=== PATIENT | male | born 1980 | race Caucasian/White ===

== ENCOUNTER 2016-10-27 16:20 | Emergency (ER) | payer OTHER, BC ==
[~2016-10-27] VITALS: Ht 175.3 cm; Wt 95.0 kg
[2016-10-27 16:27] VITALS: TEMP 36.7; Ht 175.3 cm; Wt 95.0 kg
[2016-10-27] MEDS ORDERED: XYLOCAINE 1%/SOD BICARB 20 ML VIAL INFIL ONE ×2 (16:39→17:00)
--- NOTE | 2016-10-27 16:55 | EMERGENCY ROOM VISIT NOTE ---
ED Visit Note First contact with patient: 16:41 CHIEF COMPLAINT: Finger laceration HISTORY OF PRESENT ILLNESS: This 36-year-old male patient presents to the emergency department after cutting the right third finger when his hand slipped off of the wrench he was using hitting a piece of steel. The bleeding has stopped. Denies weakness or numbness of the finger. The patient has full range of motion of the fingers. The patient rates the pain as minimal and 2/10. The patient denies any other injuries. The patient's tetanus shot is up to date. REVIEW OF SYSTEMS: A 6 system review of systems was completed with positives and pertinent negatives listed in the HPI. ALLERGIES: No known drug allergies MEDICATIONS: Reviewed PMH: Asthma SOCIAL HISTORY: Occasional alcohol use. Employed. Occasional chewing tobacco use. PHYSICAL EXAM: Vital Signs: Reviewed Nurse's notes, vital signs stable. GENERAL : 36-year-old male, in no acute distress, well developed, well nourished. SKIN : There is a 2 cm long laceration on the dorsal aspect of the right third finger. The edges gape apart with traction. There is no foreign material in the wound and it looks clean. There is no bleeding. No deep structures such as tendons, bones, or significant blood vessels are seen in the base of the wound. Extension and flexion of the finger is full and strong. Full range of motion of the wrist and other fingers. Capillary refill less than 2 seconds. Normal sensation to light and sharp touch. EMERGENCY DEPARTMENT COURSE: I examined the patient. An x-ray was performed RIGHT FINGER(S) MIN 2 VIEWS ROUTINE CLINICAL HISTORY: R 3rd digit pain swelling over PIP Right pain COMPARISON: None. DISCUSSION: The bones and joint spaces appear intact. There is no evidence of fracture, dislocation or bony disease. There is no evidence for soft tissue swelling. IMPRESSION: Negative study. The above report was generated using voice recognition software. It may contain grammatical, syntax or spelling errors. Electronically signed by: Peter Moreno M.D. 10/27/2016 5:37 PM Verbal consent was obtained to perform the procedure. Using sterile technique the wound was cleansed with Betadine. 5 ml of 1% buffered lidocaine and Marcaine was used to anesthetize the area. The area was sterilely draped. Once the patient was anesthetized, the wound was copiously irrigated under pressure with sterile saline. The wound was explored and there were no deep structures injured. The laceration was repaired using 6 simple interrupted 5-0 nylon sutures. The patient tolerated the procedure well. Hemostasis was achieved. The area was cleaned with sterile saline and dressed with bacitracin ointment and bandage. The patient was discharged home in good condition. DIAGNOSIS: Finger laceration DISCHARGE INSTRUCTIONS & TREATMENT: Keep wound clean. It is okay to gently wash the area with soapy water. Do not submerse it in water for long periods of time such as swimming, going in hot tubs or taking baths until the sutures come out. Do not allow any crusting or dried blood to accumulate on sutures. If this occurs, use a 1:1 solution of hydrogen peroxide/water on a Q-tip to clean the wound. Use an antibiotic ointment for 3-4 days, then let wound dry. Suture removal in 14 days. Return sooner for any signs of infection ( increasing redness, swelling, drainage). Ice and elevate for swelling and pain. Ibuprofen 600 mg and Tylenol 1000 mg every 6 hrs for pain. This chart was completed in part utilizing [employer] Voice Recognition software. Attempts were made to minimize the grammatical errors, random word insertions, pronoun errors and incomplete sentences. Any formal questions or concerns about the content, text or information contained within the body of this dictation should be directly addressed to the provider for clarification.
--- NOTE | 2016-10-27 17:38 | DIAGNOSTIC IMAGING REPORT ---
RIGHT FINGER(S) MIN 2 VIEWS ROUTINE CLINICAL HISTORY: R 3rd digit pain swelling over PIP Right pain COMPARISON: None. DISCUSSION: The bones and joint spaces appear intact. There is no evidence of fracture, dislocation or bony disease. There is no evidence for soft tissue swelling. IMPRESSION: Negative study. The above report was generated using voice recognition software. It may contain grammatical, syntax or spelling errors. Electronically signed by: Peter Moreno M.D. 10/27/2016 5:37 PM Dictated Date/Time: 10/27/2016 5:37 PM
[2016-10-27 18:07] VITALS: BP 133/87; PULSE 86; O2SAT 99
== END 2016-10-27 18:09 | disposition home or self-care (01) ==
LOC: C.EDB 16:21 → C.EDD 18:09
DX: S61.212A Laceration without foreign body of right middle finger without damage to nail, initial encounter (principal); W45.8XXA Other foreign body or object entering through skin, initial encounter; Y93.89 Activity, other specified; J45.909 Unspecified asthma, uncomplicated; Z72.0 Tobacco use

== ENCOUNTER 2023-03-07 13:27 | Inpatient (IN) ==
[2023-03-07] MEDS: methylPREDNISolone 125 MG/2 ML VIAL IV STA (14:09)
[2023-03-07] MEDS: MoRPHine SULFATE 10 MG/ML CARP/VIAL IV STA ×2 (14:09→17:06)
[2023-03-07] MEDS: KETOROLAC TROMETHAMINE 15 MG/ML VIAL IV STA (14:09)
[2023-03-07] MEDS: ONDANSETRON INJ 2 MG/ML 2 ML VIAL IV STA (14:09)
--- NOTE | 2023-03-07 14:21 | Emergency Department Note ---
ED Provider Note History of Present Illness Chief Complaint: Back Injury/Pain Stated Complaint: LOWER BACK PAIN/RIGHT LEG PAINFUL & NUMB Time Seen by Provider: 03/07/23 13:55 43-year-old male who presents to the emergency department for evaluation of severe lower back pain radiating into his right calf. The patient reports that he has had issues with his back since this past December. The patient did go see a chiropractor today, who referred him to the emergency department for further evaluation. The patient has not taken any recent ibuprofen or Tylenol for his pain. Patient also currently denies any bladder/bowel incontinence, numbness of the inner thighs/pubic region or foot drop. Patient reports that he has not sought any further workup by his PCP, and denies any prior history of chronic back pain or known injuries. The patient rates his discomfort a 10 out of 10. Allergies Allergy/AdvReac Type Severity Reaction Status Date / Time No Known Allergies Allergy Unknown Verified 10/27/16 16:48 Past Med/Surg History Medical History Asthma Surgical History No significant past surgical history Social History Smoking Status: Never smoker Feels Safe at Home: Yes Physical Exam Vital Signs Vital Signs - 24 hr 03/07/23 13:28 03/07/23 13:42 Temperature 36.6 C Temperature Source Temporal Artery Scan Pulse Rate 97 H Respiratory Rate 20 Respiratory Effort / Characteristics Non-Labored Non-Labored Respiratory Depth Normal Normal Respiratory Pattern Regular Blood Pressure 155/96 H Blood Pressure Mean 115 Pulse Oximetry 97 Oxygen Delivery Method Room Air Room Air Sepsis Recent Fever Within 48 Hours No Sepsis New/Unexplained Change in Mental Status No Sepsis Action Taken by Nursing No Action Required CONSTITUTIONAL: Healthy and well nourished. Patient appears in severe discomfort, and is laying on his left side. HEENT: No scleral icterus or conjunctival injection. RESPIRATORY: Clear to auscultation bilaterally with no wheezing, crackles, rhonchi or stridor. CARDIOVASCULAR: Regular rate and rhythm with no murmurs, rubs or gallops. GASTROINTESTINAL: Bowel sounds present in all quadrants. Abdomen is soft and nontender to palpation MUSCULOSKELETAL: Examination shows tenderness to palpation for the right lower lumbar region. No obvious paraspinous spasms. Negative logroll of the hip. Positive straight leg raise. Ankle plantar/dorsiflexion strength is 4 out of 5 and symmetric bilaterally INTEGUMENTARY: No rash or other significant dermatologic conditions noted. HEMATOLOGIC: No ecchymosis or petechiae. PSYCHIATRIC: Positive affect. NEUROLOGIC: Lower extremities are sensory intact. Course Course Patient history and physical exam were performed. Nurses notes were reviewed. IV access was established, and labs were drawn. The patient was administered IV morphine, Toradol, Zofran and Solu-Medrol. The patient was also administered a normal saline 500 cc bolus. After the patient was able to tolerate positioning on his back, x-rays of the lumbar spine were performed, showing notable degenerative disc disease from L3-S1. No fractures appreciated. Upon reevaluation, the patient reported that he did not really have any significant pain relief. He was therefore ordered additional IV Dilaudid. Unfortunately, there was an approximate 1 hour delay until the patient could be provided his IV medications. After an additional 45 minutes, the patient still denied any relief of symptoms. At this point, I did recommend discussing the case with our hospitalist for possible admission. I also placed an order for an MRI with orbit x-rays. The case was discussed with the [facility] hospitalist service at my end of shift. Pending MRI results, the hospitalist service indicated that they would discuss the case further with the patient and Chidi Fox PA-C. Administered Medications Discontinued Medications Hydromorphone HCl (Hydromorphone Inj 0.5 Mg/0.5 Ml Syr) 0.5 mg IV NOW STA Stop: 03/07/23 15:09 Last Admin: 03/07/23 16:05 Dose: 0.5 mg Documented By: EFRAIN Sodium Chloride (Nss) 500 mls @ 999 mls/hr IV .Q31M ONE Stop: 03/07/23 14:51 Last Infusion: 03/07/23 16:11 Dose: Infused Documented By: Admin: 03/07/23 14:32 Dose: 999 mls/hr Documented By: YAA Ketorolac Tromethamine (Ketorolac Tromethamine 15 Mg/Ml Vial) 15 mg IV NOW STA Stop: 03/07/23 14:00 Last Admin: 03/07/23 14:09 Dose: 15 mg Documented By: HUMBLE Methylprednisolone (Methylprednisolone 125 Mg/2 Ml Vial) 125 mg IV NOW STA Stop: 03/07/23 14:00 Last Admin: 03/07/23 14:09 Dose: 125 mg Documented By: HUMBLE Morphine Sulfate (Morphine Sulfate 10 Mg/Ml Carp/Vial) 6 mg IV NOW STA Stop: 03/07/23 14:00 Last Admin: 03/07/23 14:09 Dose: 6 mg Documented By: HUMBLE Ondansetron HCl (Ondansetron Inj 2 Mg/Ml 2 Ml Vial) 4 mg IV NOW STA Stop: 03/07/23 14:00 Last Admin: 03/07/23 14:09 Dose: 4 mg Documented By: HUMBLE Medical Decision Making Medical Records Attestation: I reviewed the patient's medical records. Home Medications was personally reviewed by me Laboratory Data Attestation: I reviewed the patient's lab results. 03/07/23 14:09 03/07/23 14:09 Lab Results 03/07/23 Range/Units 14:09 WBC 8.35 (4.8-10.8) K/ul RBC 5.31 (4.70-6.10) M/uL Hgb 16.3 (14.0-18.0) g/dl Hct 46.0 (42.0-52.0) % MCV 86.6 (80.0-100.0) fL MCH 30.7 (25.0-34.0) pg MCHC 35.4 (32.0-36.0) g/dL RDW Std Deviation 41.5 (36.4-46.3) fL RDW Coeff of Joselo 13.2 (11.5-14.5) % Plt Count 373 (130-400) K/uL MPV 9.6 (9.4-12.4) fL Immature Gran % (Auto) 0.4 % Neut % (Auto) 65.3 % Lymph % (Auto) 25.5 % [place] % (Auto) 5.4 % Eos % (Auto) 2.8 % Baso % (Auto) 0.6 % Neut # (Auto) 5.46 (1.40-6.50) K/uL Lymph # (Auto) 2.13 (1.20-3.40) K/uL [place] # (Auto) 0.45 (0.11-0.59) K/uL Eos # (Auto) 0.23 (0.00-0.50) K/uL Baso # (Auto) 0.05 (0.00-0.20) K/uL Immature Gran # (Auto) 0.03 (0.01-0.20) K/uL Sodium 139 (136-145) mmol/L Potassium 3.7 (3.5-5.1) mmol/L Chloride 107 (98-107) mmol/L Carbon Dioxide 24 (21-32) mmol/L Anion Gap 8 (3-11) BUN 15 (6-23) mg/dl Creatinine 0.85 (0.6-1.4) mg/dl Est Cr Clr Drug Dosing Not Reportable Est GFR ( Amer) 122.8 ml/min Est GFR (Non-Af Amer) 106.0 ml/min BUN/Creatinine Ratio 17.6 (10-20) Glucose 101 H (70-99(Fasting)) mg/dl Calcium 9.3 (8.6-10.3) mg/dl Total Bilirubin 0.4 (0.2-1.0) mg/dl AST 28 (13-39) U/L ALT 55 H (7-52) U/L Alkaline Phosphatase 75 (34-104) U/L Total Protein 7.7 (6.0-8.3) gm/dl Albumin 4.8 (3.4-5.0) gm/dl Globulin 2.9 (2.5-4.0) gm/dl Albumin/Globulin Ratio 1.7 (0.9-2) Imaging Data Attestation: I personally reviewed and interpreted this imaging study as follows: My Impression: My interpretation of lumbar spine x-rays shows notable degenerative disc disease of L3-S1, without evidence for fractures. Radiologist report was also reviewed with concurrence. Radiologist's Impression: Lumbar Spine X-Ray 03/07/23 13:59 XR lumbar spine min 4V routine HISTORY: 43 years-old Male R lumbar radiculitis x 2-3 mos subacute low back pain without reported trauma COMPARISON: None TECHNIQUE: 5 views of the lumbar spine FINDINGS: Chronic L5 pars defects with 7 mm anterolisthesis. Moderate intervertebral disc space narrowing and spondylitic spurring at L3-L4, L4-L5 and L5-S1. Additionally, there is moderate facet arthrosis at these levels. No acute fracture identified. No endplate erosions. Unremarkable soft tissues. IMPRESSION: 1. No acute fracture or subluxation. 2. Moderate degenerative changes of the lower lumbar spine. 3. Chronic L5 pars defects with grade 1 spondylolisthesis. ACT 112: Negative or not required by law. The above report was generated using voice recognition software. It may contain grammatical, syntax or spelling errors. Electronically signed by: Manav Barnett M.D. 03/07/2023 3:23 PM MDM Narrative See ED Course section for further details of today's visit. The patient presents for evaluation of a 2 to 3-month history of right lumbar radiculitis that has not had any prior workup. The patient denies any recent or remote history of back trauma. X-rays of the lumbar spine shows significant degenerative disc disease of L3-S1. Labs were reviewed and did not show any concerning findings. The patient was administered IV medications, including a corticosteroid and analgesics, with minimal reduction of his pain. At this point, because of intractable back pain, I did reach out to our [facility] hospitalist, ordering orbit x-rays and MRI of the lumbar spine. Pending MRI results, the hospitalist service indicated that they would discuss the case further with the patient and Chidi Fox PA-C. Impression Intractable low back pain, Right lumbar radiculitis Discharge Plan Visit Data Chief Complaint: Back Injury/Pain Stated Complaint: LOWER BACK PAIN/RIGHT LEG PAINFUL & NUMB ED Provider: Peter Burger ED Midlevel Provider: Abimael Nieto Discharge Problem: Intractable low back pain, Right lumbar radiculitis Forms Stand Alone Forms: My [facility] Referrals Referrals: PCP,NO [Primary Care Provider] -
[2023-03-07] MEDS: SODIUM CHLORIDE 0.9% 500 ML IV ONE (14:32)
[2023-03-07 14:38] LABS: Basophils # (auto) 0.05 K/uL (0.00-0.20); Basophils % (auto) 0.6 %; Eosinophils # (auto) 0.23 K/uL (0.00-0.50); Eosinophils % (auto) 2.8 %; Hemoglobin 16.3 g/dl (14.0-18.0); Immature Granulocytes # (auto) 0.03 K/uL (0.01-0.20); Immature Granulocytes % (auto) 0.4 %; Lymphocytes # (auto) 2.13 K/uL (1.20-3.40); Lymphocytes % (auto) 25.5 %; Mean Corpuscular Hemoglobin 30.7 pg (25.0-34.0); Mean Corpuscular Hgb Conc 35.4 g/dL (32.0-36.0); Mean Corpuscular Volume 86.6 fL (80.0-100.0); Mean Platelet Volume 9.6 fL (9.4-12.4); Monocytes # (auto) 0.45 K/uL (0.11-0.59); Monocytes % (auto) 5.4 %; Neutrophils # (auto) 5.46 K/uL (1.40-6.50); Neutrophils % (auto) 65.3 %; Platelet Count 373 K/uL (130-400); RDW Coefficient of Variation 13.2 % (11.5-14.5); RDW Standard Deviation 41.5 fL (36.4-46.3); Red Blood Count 5.31 M/uL (4.70-6.10); White Blood Count 8.35 K/ul (4.8-10.8)
[2023-03-07 14:54] LABS: Alanine Aminotransferase 55 U/L (7-52); Albumin Globulin Ratio 1.7 (0.9-2); Albumin Level 4.8 gm/dl (3.4-5.0); Alkaline Phosphatase 75 U/L (34-104); Anion Gap 8 (3-11); Aspartate Aminotransferase 28 U/L (13-39); BUN Creatinine Ratio 17.6 (10-20); Bilirubin,Total 0.4 mg/dl (0.2-1.0); Blood Urea Nitrogen 15 mg/dl (6-23); Calcium 9.3 mg/dl (8.6-10.3); Carbon Dioxide 24 mmol/L (21-32); Chloride 107 mmol/L (98-107); Est GFR (African American) 122.8 ml/min; Globulin 2.9 gm/dl (2.5-4.0); Glucose 101 mg/dl (70-99(Fasting)); Potassium 3.7 mmol/L (3.5-5.1); Sodium 139 mmol/L (136-145); Total Protein 7.7 gm/dl (6.0-8.3)
--- NOTE | 2023-03-07 15:24 | XRay Report ---
XR lumbar spine min 4V routine HISTORY: 43 years-old Male R lumbar radiculitis x 2-3 mos subacute low back pain without reported tr auma COMPARISON: None TECHNIQUE: 5 views of the lumbar spine FINDINGS: Chronic L5 pars defects with 7 mm anterolisthesis. Moderate intervertebral disc space narrowing and s pondylitic spurring at L3-L4, L4-L5 and L5-S1. Additionally, there is moderate facet arthrosis at the se levels. No acute fracture identified. No endplate erosions. Unremarkable soft tissues. IMPRESSION: 1. No acute fracture or subluxation. 2. Moderate degenerative changes of the lower lumbar spine. 3. Chronic L5 pars defects with grade 1 spondylolisthesis. ACT 112: Negative or not required by law. The above report was generated using voice recognition software. It may contain grammatical, syntax o r spelling errors. Electronically signed by: Manav Barnett M.D. 03/07/2023 3:23 PM
[2023-03-07] MEDS: HYDROmorphone INJ 0.5 MG/0.5 ML SYR IV STA ×2 (16:05→19:23)
--- NOTE | 2023-03-07 17:57 | XRay Report ---
XR orbits for MRI CLINICAL HISTORY: Screening for foreign body for MRI TECHNIQUE: AP and lateral views of the orbits were submitted for interpretation. Comparison: None available at the time of this dictation. FINDINGS/IMPRESSION: There are no radiopaque metallic foreign bodies. The osseous structures are unremarkable. Patient is cleared for MRI. ACT 112: Negative or not required by law. Electronically signed by: Chris Foster M.D. 03/07/2023 5:56 PM
[2023-03-07] MEDS ORDERED: NALOXONE HCL 0.4 MG/1 ML VIAL/CARP IV PRN (18:13)
--- NOTE | 2023-03-07 18:23 | History & Physical Report ---
Date of Service March 07, 2023 Assessment & Plan (1) Right lumbar radiculitis: Plan: -Admit to med/surge on pulse oximetry -Currently hemodynamically stable and stable on RA -Presented to the ED with acute onset of lumbar back pain with radiation down the RLE -Associated with RLE paresthesias -No red flag symptoms or recent falls -Xray of the lumbar spine shows "Chronic L5 pars defects with grade 1 spondylolisthesis" -Pain was uncontrolled despite multiple doses of morphine, toradol and a dose of dilaudid in the ED -Also received a dose of 125 mg IV Solu-medrol in the ED -MRI of the lumbar spine wo con was ordered in the ED but has yet to be obtained -Will continue pain control with scheduled tylenol, heat, lidocaine patch and prn dilaudid for severe pain -Will FU on MRI of the lumbar spine -Will place ortho spine consult -Will obtain ECG and CXR in case he is taken to the OR during this admission -Monitor on pulse oximetry, prn narcan for oversedation/respiratory depression -Fall precautions, PT/OT consults placed -SQ lovenox for DVT PPX -HH diet -AM CBC, BMP, LFT's (2) Elevated ALT measurement: Plan: -ALT mildly elevated at 55 -Patient does not report significant alcohol intake -Denies recent Tylenol use -Benign abdominal exam -Will obtain am LFT's, if not improving or progressing then continue workup (3) Intractable low back pain: Plan: -See right lumbar radiculitis (4) Asthma: Plan: -Stable on RA -Lungs are clear -Incentive spirometry -PRN albuterol (5) HTN (hypertension): Plan: -Stable -Continue amlodipine Plan The patient was discussed with Dr. Saenz at the time of the admission History of Present Illness Chief Complaint: Radicular back pain Primary Care Provider: NO PCP Arsh is a 43 year old male with a PMH significant for HTN, obesity, asthma, and anxiety who presented to the [facility] ED on 03/07/23 for uncontrolled low back pain with radiation down the right leg. He was noted to be tachycardic with HR in the low 100's but otherwise stable. Labs were significant for a ALT of 55 but otherwise unremarkable. Xray of the lumbar spine was read as "1. No acute fracture or subluxation. 2. Moderate degenerative changes of the lower lumbar spine. 3. Chronic L5 pars defects with grade 1 spondylolisthesis. ". The patient was given 2 doses of 6 mg IV morphine, one dose of 0.5 mg IV Dilaudid, 125 mg, 15 mg IV toradol without improvement in his symptoms. We were asked to admit for pain control, MRI of the lumbar spine, and Ortho Spine consult/evaluation. At the time of the exam the patient was lying in bed and appears uncomfortable but in no acute distress. 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 Over the past 2 months he has been chopping lots of wood for the winter which somewhat exacerbated his pain last month, but this had improved. 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 He states that since the weekend he has had significantly increased low back pain with radiation down the right lateral leg, over the anterior bejarano, and on the dorsal aspect of the right foot. He has been exper iencing paresthesias over the same distribution of his pain but denies loss of bowel/bladder function, saddle anesthesia, and recent falls. He does state that he has felt less stable on his feet over the past 48 hours. He was using ibuprofen for his pain over the past hours taking 800 mg BID without relief. He denies current tobacco use and drinks beer socially. He is a full code and would want his fiance (Faye Pulliam [phone]) to make medical decisions for him if he cannot make them himself. Please refer to Dr. Saenz's attestation for any changes to the treatment plans Allergies Allergy/AdvReac Type Severity Reaction Status Date / Time No Known Allergies Allergy Unknown Verified 10/27/16 16:48 Home Medications Medication Instructions Recorded Confirmed Type Probiotic 1 gummy PO DAILY 03/07/23 03/07/23 History albuterol sulfate 90 mcg/actuation 2 puff inhalation UD PRN Other 03/07/23 03/07/23 History aerosol inhaler amlodipine 10 mg tablet 10 mg PO QAM 03/07/23 03/07/23 History bupropion HCl 150 mg 24 hr tablet, 150 mg PO QAM 03/07/23 03/07/23 History extended release Past Med/Surg History Medical History Asthma Surgical History No significant past surgical history Social History Smoking Status: Never smoker Feels Safe at Home: Yes Physical Exam Physical Exam: Physical Exam: General: In mild distress due to pain, stated age, well-nourished, good hygiene HEENT: Normocephalic, atraumatic, no scleral icterus, pupils around round, symmetrical, and reactive to light, moist mucus membranes, trachea midline, no thyromegaly Chest/Pulm: No respiratory distress, symmetrical chest expansion, clear breath sounds throughout Cardiac: RRR, no murmurs noted Abdomen: Negative for ascites and bruising, normoactive bowel sounds, soft, non-tender to palpation throughout Musculoskeletal: Patient is tender to palpation over the lower lumbar spine and right lumbar paravertebral muscles without step off or crepitus, decreased strength with right hip flexion due to pain, otherwise symmetrical strength in the BL LE's Extremities: Radial, dorsalis pedis, and posterior tibial pulses are intact and symmetrical, no edema noted in the LE's Skin: Warm, dry, no rashes , lesions, or scars noted Neuro: Alert and oriented to person, place, month, year, and president, no focal defects, decreased sensation in the RLE compared to left with light touch, 2+ patellar and Achilles reflex BL Psych: mild distress due to pain, but polite and cooperative during the exam Results & Data Results & Data Vital Signs (Past 12 Hours) Vital Signs Temp Pulse Pulse Resp BP BP Pulse Ox 03/07/23 17:33 104 H 20 134/93 94 03/07/23 17:33 103 H 03/07/23 13:42 36.6 C 97 H 20 155/96 H 97 03/07/23 13:28 O2 Del Method 03/07/23 17:33 Room Air 03/07/23 17:33 03/07/23 13:42 Room Air 03/07/23 13:28 Room Air Laboratory Results Abnormal lab results 03/07/23 Range/Units 14:09 Glucose 101 H (70-99(Fasting)) mg/dl ALT 55 H (7-52) U/L Diagnostic Findings Lumbar Spine X-Ray 03/07/23 13:59 XR lumbar spine min 4V routine HISTORY: 43 years-old Male R lumbar radiculitis x 2-3 mos subacute low back pain without reported trauma COMPARISON: None TECHNIQUE: 5 views of the lumbar spine FINDINGS: Chronic L5 pars defects with 7 mm anterolisthesis. Moderate intervertebral disc space narrowing and spondylitic spurring at L3-L4, L4-L5 and L5-S1. Additionally, there is moderate facet arthrosis at these levels. No acute fracture identified. No endplate erosions. Unremarkable soft tissues. IMPRESSION: 1. No acute fracture or subluxation. 2. Moderate degenerative changes of the lower lumbar spine. 3. Chronic L5 pars defects with grade 1 spondylolisthesis. ACT 112: Negative or not required by law. The above report was generated using voice recognition software. It may contain grammatical, syntax or spelling errors. Electronically signed by: Manav Barnett M.D. 03/07/2023 3:23 PM Orbit X-Ray 03/07/23 16:50 XR orbits for MRI CLINICAL HISTORY: Screening for foreign body for MRI TECHNIQUE: AP and lateral views of the orbits were submitted for interpretation. Comparison: None available at the time of this dictation. FINDINGS/IMPRESSION: There are no radiopaque metallic foreign bodies. The osseous structures are unremarkable. Patient is cleared for MRI. ACT 112: Negative or not required by law. Electronically signed by: Chris Foster M.D. 03/07/2023 5:56 PM ECG Additional Comments: Will obtain at the time of the admission Code Status & VTE Plan Code Status Full code VTE Prophylaxis Plan VTE Prophylaxis will be ordered: Yes Supervising Physician Co-Signing Physician Notes Patient seen and examined, chart reviewed, case discussed with Delmar Storm PA-C and I agree with the assessment and plan as above except as otherwise noted Labs and images reviewed 43-year-old male who presents for evaluation of right radicular pain. Chest x- ray is without acute findings. Patient has no bowel or bladder dysfunction and no saddle anesthesia. He has had shooting pain from his lumbar spine down his right leg into the heel which limits his ability to stand from the toilet PE he also has just noticed some difficulty/weakness in the right foot standing on his heel/with dorsiflexion compared to the left, and may be a little bit of weakness in his thigh when attempting to stand. Given radicular symptoms and strength deficit agree with admission, MRI, and spine consultation. Patient has been given methylprednisolone 125 mg IV load. Continue multimodal pain control. Agree with assessment and management as above PG Care Time/CCT Total # of Minutes Spent Total Time Spent with Patient: Total time spent is greater than 50% in coordination of care (as documented) at patient's floor/unit and/or counseling patient: [place] [address] INT INP/OBS CARE 2/55MIN Patient Type New Medical Decision Making Moderate Complexity Diagnoses Right lumbar radiculitis M54.16 Elevated ALT measurement R74.01 Intractable low back pain M54.59 Asthma J45.909 HTN (hypertension) I10
[2023-03-07] MEDS: LIDOCAINE 5% 1 PATCH TD STA (19:22)
[2023-03-07] MEDS: ACETAMINOPHEN 325 MG TAB PO STA (19:22)
--- NOTE | 2023-03-07 20:10 | Magnetic Resonance Report ---
Exam(s): MRI L SPINE Without Contrast EXAM: MR Lumbar Spine Without Intravenous Contrast CLINICAL HISTORY: Reason for exam: Intractable LBP w/ R lumbar radic. TECHNIQUE: Magnetic resonance images of the lumbar spine without intravenous contrast in multiple planes. COMPARISON: Lumbar spine radiographs 03/07/2023 FINDINGS: Vertebrae: Chronic bilateral pars defects of L5 with grade 1 spondylolisthesis of L5 on S1. Minimal grade 1 retrolisthesis of L3 on L4 and L4 on L5. Modic degenerative endplate changes are seen in the lumbar spine. 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 Spinal cord: Unremarkable. Normal signal. Soft tissues: Unremarkable. DISCS/SPINAL CANAL/NEURAL FORAMINA: L1-L2: Mild disc bulge with small endplate osteophytes and facet arthrosis. No significant spinal canal stenosis or foraminal narrowing. L2-L3: Mild disc bulge and facet arthrosis. No significant spinal canal stenosis. Mild bilateral foraminal narrowing. L3-L4: Disc bulge with annular fissure and superimposed right subarticular disc protrusion. Bilateral facet arthrosis. Right subarticular recess stenosis with displacement of the descending right L4 nerve roots. Moderate bilateral foraminal narrowing. L4-L5: Disc bulge with annular fissure, endplate osteophytes, and bilateral facet arthrosis. No significant spinal canal stenosis. Severe right and moderate to severe left foraminal narrowing. L5-S1: Spondylolisthesis of L5 on S1 with uncovering of disc material, annular fissure, endplate osteophytes, and bilateral facet arthrosis. No significant spinal canal stenosis. Severe bilateral foraminal narrowing. IMPRESSION: 1. Chronic bilateral pars defects of L5 with grade 1 spondylolisthesis of L5 on S1 and associated severe degenerative change resulting in severe bilateral foraminal narrowing. Recommend correlation for symptoms. 2. Right subarticular disc protrusion at L3-L4 resulting in right subarticular recess stenosis with mass effect on the descending right L4 nerve roots. Recommend correlation for symptoms. 3. Degenerative change at L4-L5 resulting in severe right and moderate to severe left foraminal narrowing. Electronically signed by: Mohinder Bravo MD 03/07/23 20:09 PM
[2023-03-07] MEDS ORDERED: ALBUTEROL HFA 8 GM INHALER INH PRN (20:52)
[2023-03-07] MEDS: ENOXAPARIN INJ 40 MG/0.4 ML SYR SQ SCH (21:38)
--- OUTSIDE RECORDS SUMMARY | 2023-03-07 22:08 | External Medical Summary | Summary of Care ---
Author Name Unknown Organization [facility] Address [address] [place] [address] Phone [phone] Care Team Providers Care Supervisor Seaming Name Role Phone Amy Carey MD Primary Care Provider [phone] Reason for Visit * Reason Onset Date Comments Test Results 09/14/2022 Encounter Details Date Type Department Care Team Description 09/14/2022 Telephone General Internal Medicine [facility] [address] [facility] [place] [address] Amy Carey MD [address] [place] [address] Test Results Allergies Active Allergy Reactions Severity Noted Date Comments Cat Dander Anaphylaxis High 07/29/2022 Dust Low 07/29/2022 Sinus congestion Pollen Low 07/29/2022 Sinus congestion documented as of this encounter (statuses as of 09/15/2022) Medications Medication Sig Dispensed Refills Start Date End Date Status Fluticasone Propionate 50 MCG/ACT Nasal Suspension (Flonase)Indications :Seasonal allergic rhinitis, unspecified trigger,Bilateral chronic serous otitis media Administer into each nostril [address] 12/09/2021. 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 18 g 0 12/09/2021 Active amLODIPine Besylate 5 MG Oral Tablet (Norvasc)Indications :HTN, goal below 130/80 TAKE 1 TABLET BY MOUTH IN THE MORNING - BLOOD PRESSURE CHECK IN 2 TO 3 WEEKS. 90 Tablet 3 04/21/2022 Active buPROPion HCl ER (XL) 150 MG Oral Tablet Extended Release 24 Hour (Wellbutrin XL)Indications:Curre nt moderate episode of major depressive disorder without prior episode (HCC),Excessive anger Take 1 Tablet by mouth in the morning. Since 06/04/21. 90 Tablet 1 06/15/2022 Active oxyCODONE-Acetaminop hen 5-325 MG Oral Tablet (Percocet) Take 1 Tablet by mouth every 6 hours as needed for moderate Pain 10 Tablet 0 08/27/2022 Active Ibuprofen 800 MG Oral Tablet (Motrin) Take 1 Tablet by mouth in the morning and 1 Tablet at noon and 1 Tablet before bedtime. Take with Meals. 45 Tablet 0 08/27/2022 Active Hospital, Clinic, or Other Facility Administered Medication Ordered Dose Route Frequency Start Date End Date Status Albuterol Sulfate (Proventil) (2.5 MG/3ML) 0.083% inhalation solution 2.5 mgIndications:Cold-sheila sophie asthma without complication, unspecified asthma severity, unspecified whether persistent,History of tobacco use 2.5 mg NEBULIZER PRN 05/24/2022 05/24/2023 Active Albuterol Sulfate (Proventil) (5 MG/ML) 0.5% *conc* inhalation solution 2.5 mgIndications:Cold-sheila sophie asthma without complication, unspecified asthma severity, unspecified whether persistent,History of tobacco use 2.5 mg NEBULIZER PRN 05/24/2022 05/24/2023 Active documented as of this encounter (statuses as of 09/15/2022) Active Problems Problem Noted Date 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 Current moderate episode of major depressive disorder without prior episode 06/09/2021 Excessive anger 06/09/2021 Witnessed episode of apnea 06/09/2021 Restless legs syndrome 06/09/2021 Class 1 obesity due to excess calories w ith serious comorbidity in adult 06/09/2021 Numerous skin moles 06/09/2021 History of tobacco use 06/09/2021 Marijuana smoker, episodic 06/09/2021 History of MRSA infection 12/17/2020 Overview: ACL repair left 1997> growth left knee 2007 DrEllis excised x 2- h/o MRSA inf documented as of this encounter (statuses as of 09/15/2022) Immunizations Name Administration Dates Next Due COVID-19 mRNA, LNP-s, No Pre serve, 2-Dose Series (Moderna) 07/15/2020,06/24/2020 Pneumococcal Conjugate Vaccine, 20-valent (Prevn ar20) 03/16/2022 Seasonal Influenza, Quadriva lent, No Preserve, 6 Mons & Above, IM 12/09/2021,12/17/2020 Seasonal Influenza, Split, IIV3, With Preserve, Inj 07/15/2011 TDAP (age 10 and older)(Boostrix) 03/10/2021 documented as of this encounter Social History Tobacco Use Types Packs/Day Years Used Date Smoking Tobacco: Former Cigarettes 0.3 5 Q uit: 12/15/2021 Smokeless Tobacco: Former Chew Quit: 2018 Comments: Alcohol Use Standard Drinks/Week Comments Yes 5 (1 standard drink = 0.6 oz pur e alcohol) 6p/wk Alcohol Habits Answer Date Recorded How often do you have a drink containing alcohol ? Monthly or less 12/17/2020 How many drinks containing a lcohol do you have on a typical day when you are drinking? 1 or 2 12/17/2020 How often do you have six or more drinks on one occasion? Never 12/17/2020 Food Insecurity Answer Date Recorded Within the past 12 months, y ou worried that your food would run out before you got money to buy more. Never true 05/24/2022 Within the past 12 months, t he food you bought just didn't last and you didn't have money to get more. Never true 05/24/2022 Sex Assigned at Date Recorded Not on file Job Start Date Occupation Industry Not on file Not on file Not on file documented as of this encounter Miscellaneous Notes * Telephone Encounter - LOU Kaplan - 09/15/2022 10:49 AM EDT Please assist patient in scheduling. * Telephone Encounter - Amy Carey MD - 09/14/2022 5:35 PM EDT Please route to central scheduler * Telephone Encounter - Chidi Morgan LPN - 09/14/2022 3:25 PM EDT Provider to address: Amy Carey MD Reason for Call: Test Results Contact: Telephone Call Contact Type: Test Results Outcome: patient informed and voiced understanding. Total Time including non face to face (minutes): 5 * Telephone Encounter - Chidi Morgan LPN - 09/14/2022 3:20 PM EDT ----- Message from Amy Carey MD sent at 09/10/2022 9:21 PM EDT ----- Right knee synovitis excision 08/27/22 >pathology shows chronic synovitis, negative for crystals,Lyme PCR negative -Differential of Lyme arthritis versus rheumatoid or other immune mediated inflammatory arthritis. --(symptoms had started after ski injury in March; he was treated with doxycycline 4 weeks 06/25/22 > lyme IgG and IgM were +). ---labs to rule out inflammatory arthritis ordered to be done in 4 weeks and refer to Rheumatology for eval. documented in this encounter Plan of Treatment Upcoming Encounters Date Type Specialty Care Team Description 09/21/2022 Office Visit Rheumatology Danny Adler MD [address] [facility], [place] [id number] 09/29/2022 Office Visit Orthopedics Shawn Kat MD [address] [place] [phone] 11/16/2022 Office Visit Internal Medicine Amy Carey MD [address] [place] [address] Health Maintenance Due Date Last Done Comments Hepatitis B (1 of 3 - 3-dose series) 1979 HIV Screening 1994 Hepatitis C Screening 1997 COVID-19 Vaccine (3 - Modern a series) 09/09/2020 07/15/2020, 06/24/2020 Influenza Vaccine (FLU shot) (#1) 2022 12/09/2021, 12/17/2020, 07/15/2011 Depression Screening, Annual for Pts 12 and Over 05/25/2023 05/24/2022 Diabetes Screening 03/24/2025 03/24/2022 Lipid Panel 03/24/2027 03/24/2022 DTaP,Tdap,and Td Vaccines (2 - Td or Tdap) 03/10/2031 03/10/2021 Pneumococcal Vaccine: Pediatrics (0 to 5 Years) and At-Risk Patients (6 to 64 Years) Completed 03/16/2022 GARDASIL-HPV IMMUNIZATION SERIES Aged Out No longer eligible b ased on patient's age to complete this topic MENINGOCOCCAL (MENACTRA/MENVEO) Aged Out No longer eligible b ased on patient's age to complete this topic documented as of this encounter Medical Devices Not on filedocumented as of this encounter Advance Directives Latest Code Status on File Code Status Date Activated Date Inactivated Comments Full Code 08/27/2022 12:54 PM 08/27/2022 6:12 PM This order reflects the patients wishes and were consensually agreed upon. Question Answer Comments Discussion of Advance Directives occurred with: Not Discussed due to patient's condition Code Status History Code Status Date Activated Date Inactivated Comments Full Code 08/27/2022 11:09 AM 08/27/2022 12:54 PM Thi s order reflects the patients wishes and were consensually agreed upon. Question Answer Comments Discussion of Advance Directives occurred with: Not Discussed due to patient's condition Care Teams Supervisor Seaming Relationship Specialty Start Date End Date Amy Carey MD [address] [place] [address] PCP - General Internal Medicine 03/10/21 documented as of this encounter
--- OUTSIDE RECORDS SUMMARY | 2023-03-07 22:08 | External Medical Summary | Summary of Care ---
Author Name Unknown Organization [facility] Address [address] [place] [address] Phone [phone] Care Team Providers Care Manager Of Tax Name Role Phone Amy Carey MD Primary Care Provider Encounter Details Date Type Department Care Team Description 10/07/2022 Telephone Pulmonary Medicine, [facility] [address] [place] [address] [place], [address] [place] [id number] Allergies Active Allergy Reactions Severity Noted Date Comments Cat Dander Anaphylaxis High 07/29/2022 Dust Low 07/29/2022 Sinus congestion Pollen Low 07/29/2022 Sinus congestion documented as of this encounter (statuses as of 10/07/2022) Medications Medication Sig Dispensed Refills Start Date [...] as of this encounter (statuses as of 10/07/2022) Active Problems Problem Noted Date Cold-induced asthma [...] as of this encounter (statuses as of 10/07/2022) Immunizations Name Administration Dates Next Due COVID-19 mRNA, LNP-s, No Pre serve, 2-Dose Series (Moderna) 07/15/2020,06/24/2020 Pneumococcal Conjugate Vaccine, 20-valent (Prevn ar20) 03/16/2022 Seasonal Influenza, PF, 6 mo ns & Above, IM , (Flulaval) 12/09/2021,12/17/2020 Seasonal Influenza, Split, IIV3, With Preserve, [...] encounter Miscellaneous Notes * Telephone Encounter - SELWYN Rowley - 10/07/2022 10:11 AM EDT New CPAP order entered into . documented in this encounter Plan of Treatment Upcoming Encounters Date Type Specialty Care Team Description 11/16/2022 Office Visit Internal Medicine Amy Carey MD [address] [facility] [place] [address] Health Maintenance Due Date Last Done Comments [...] Discussed due to patient's condition Care Teams Manager Of Tax Relationship Specialty Start Date End Date Amy Carey MD [address] [place] [address] PCP - General Internal Medicine 03/10/21 documented as of this encounter
--- OUTSIDE RECORDS SUMMARY | 2023-03-07 22:08 | External Medical Summary | Summary of Care ---
Author Name Unknown Organization [facility] Address [address] [place] [address] Phone [phone] Care Team Providers Care Bail Attacher Name Role Phone Amy Carey MD Primary Care Provider [phone] Encounter Details Date Type Department Care Team Description 10/07/2022 Telephone Pulmonary Medicine, [facility] [address] [place] [address] Blanca Jade, [address] [facility] [place] [address] Allergies Active Allergy Reactions Severity Noted Date Comments Cat Dander Anaphylaxis High 07/29/2022 Dust Low 07/29/2022 Sinus congestion Pollen Low 07/29/2022 Sinus congestion documented as of this encounter (statuses as of 11/24/2022) Medications Medication Sig Dispensed Refills Start Date End Date Status Fluticasone Propionate 50 MCG/ACT Nasal Suspension (Flonase)Indicat ions:Seasonal allergic rhinitis, unspecified trigger,Bilatera l chronic serous otitis media Administer into each nostril [address] 12/09/2021. 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 18 g 0 2 Active buPROPion HCl ER (XL) 150 MG Oral Tablet Extended Release 24 Hour (Wellbutrin XL)Indications:C urrent moderate episode of major depressive disorder without prior episode (HCC),Excessive anger Take 1 Tablet by mouth in the morning. Since 06/04/21. 90 Tablet 1 3 Active Ibuprofen 800 MG Oral Tablet (Motrin) Take 1 Tablet by mouth in the morning and 1 Tablet at noon and 1 Tablet before bedtime. Take with Meals. 45 Tablet 0 3 Active Additional Information Patient taking differently:800 mg [id number] PRN, Pain, Breakthrough, Take with Meals, Reported on 11/16/2022 amLODIPine Besylate 5 MG Oral Tablet (Norvasc)Indicat ions:HTN, goal below 130/80 TAKE 1 TABLET BY MOUTH IN THE MORNING - BLOOD PRESSURE CHECK IN 2 TO 3 WEEKS. 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 Agrees to the pressure change * Telephone Encounter - Blanca Jade DO - 11/23/2022 7:46 AM EDT Please let pt know that I reviewed his PAP DL and it looks like he may benefit from a pressure adjustment. Right now his pressure is [id number], and I suggest adjusting it to [id number]. If he is in agreement please let me know, I will make the change (DME: [facility]). Denise, can you set up a 6 months appt for him? PAP Compliance: Report date: 10/23/22 to 11/21/22 % total days used: 93% % days used > 4 hours: 70% Average hours a day: 5 hrs 23 mins Large leak: 12.9 AHI: 1.5/hr 95% pressure: 10.7 cmH20 * Telephone Encounter - Rosy Chambers LPN - 11/22/2022 2:39 PM EDT Current DL has been given to the provider for review * Telephone Encounter - Blanca Jade DO - 11/19/2022 12:29 PM EDT May I have an updated PAP DL? Planning to order Nox on RA w/ PAP if DL shows pressure are ideal currently * Telephone Encounter - Amy Carey MD - 11/16/2022 4:37 PM EDT Pt on CPAP x1mth, priti well , pll order night oximetery and f/u after as per last OV notes. * Telephone Encounter - SELWYN Rowley - 10/07/2022 10:11 AM EDT New CPAP order entered into [facility]. documented in this encounter Plan of Treatment Health Maintenance Due Date Last Done Comments Hepatitis B (1 of 3 - 3-dose series) 1979 HIV Screening 1994 Hepatitis C Screening 1997 COVID-19 Vaccine ( season) 2022 07/15/2020, 06/24/2020 Depression Screening 05/25/2023 05/24/2022 Diabetes Screening 03/24/2025 03/24/2022 Lipid Panel 03/24/2027 03/24/2022 DTaP,Tdap,and Td Vaccines (2 - Td or Tdap) 03/10/2031 03/10/2021 Pneumococcal Vaccine: Pediatrics (0 to 5 Years) and At-Risk Patients (6 to 64 Years) Completed 03/16/2022 Influenza Vaccine (FLU shot) Completed 04/2022, 12/09/2021, 12/17/2020, Additional history exists GARDASIL-HPV IMMUNIZATION SERIES Aged Out No longer eligible based on patient's age to complete this topic MENINGOCOCCAL (MENACTRA/MENVEO) Aged Out No longer eligible based on patient's age to complete this topic [...] Discussed due to patient's condition Care Teams Bail Attacher Relationship Specialty Start Date End Date Amy Carey MD [address] [facility] [place], [place] [id number] PCP - General Internal Medicine 03/10/21 documented as of this encounter
--- OUTSIDE RECORDS SUMMARY | 2023-03-07 22:08 | External Medical Summary | Summary of Care ---
Author Name Unknown Organization [facility] Address [address] [place] [address] Phone [phone] Care Team Providers Care Icer Machine Name Role Phone Amy Carey MD Primary Care Provider [phone] Encounter Details Date Type Department Care Team Description 10/07/2022 Telephone Pulmonary Medicine, [facility] [address] [place] [address] Blanca Jade, [address] [facility] [place] [address] Allergies Active Allergy Reactions Severity Noted Date Comments Cat Dander Anaphylaxis High 07/29/2022 Dust Low 07/29/2022 Sinus congestion Pollen Low 07/29/2022 Sinus congestion documented as of this encounter (statuses as of 11/23/2022) Medications Medication Sig Dispensed Refills Start Date [...] Active Additional Information Patient taking differently:800 mg [id number] PRN, Pain, Breakthrough, Take with Meals, Reported [...] as of this encounter (statuses as of 11/23/2022) Active Problems Problem Noted Date Severe sleep [...] as of this encounter (statuses as of 11/23/2022) Immunizations Name Administration Dates Next Due COVID-19 mRNA, LNP-s, No Pre serve, 2-Dose Series (Moderna) 07/15/2020,06/24/2020 Pneumococcal Conjugate Vacci ne, 20-valent ([id number]) 03/16/2022 SEASONAL INFLUENZA, PF, 6 M & [...] encounter Miscellaneous Notes * Telephone Encounter - Blanca Jade DO - 11/23/2022 7:46 AM EDT Please let pt know that I reviewed his PAP DL and it looks like he may benefit from a pressure adjustment. Right now his pressure is [id number], and I suggest adjusting it to [id number]. If he is in agreement please let me know, I will make the change (DME: [facility]). Denise, can you set up a 6 [...] last OV notes. * Telephone Encounter - Daiana Courtney, SELWYN - 10/07/2022 10:11 AM EDT New CPAP order entered into [facility]. documented in this encounter Plan of Treatment Health Maintenance Due Date Last Done Comments Hepatitis B (1 of 3 - 3-dose series) 1979 HIV Screening 1994 Hepatitis C Screening 1997 COVID-19 Vaccine (3 season) 2022 07/15/2020, 06/24/2020 Depression Screening 05/25/2023 [...] Discussed due to patient's condition Care Teams Icer Machine Relationship Specialty Start Date End Date Amy Carey MD [address] [place] [address] PCP - General Internal Medicine 03/10/21 documented as of this encounter
--- OUTSIDE RECORDS SUMMARY | 2023-03-07 22:08 | External Medical Summary | Summary of Care ---
Author Name Unknown Organization [facility] Address [address] [place] [address] Phone [phone] Care Team Providers Care Funeral Arranger Name Role Phone Amy Carey MD Primary Care Provider [phone] Encounter Details Date Type Department Care Team Description 10/07/2022 Telephone Pulmonary Medicine, [facility] [address] [place] [address] Blanca Jade, [address] [place] [address] Allergies Active Allergy Reactions Severity Noted Date Comments Cat Dander Anaphylaxis High 07/29/2022 Dust Low 07/29/2022 Sinus congestion Pollen Low 07/29/2022 Sinus congestion documented as of this encounter (statuses as of 11/22/2022) Medications Medication Sig Dispensed Refills Start Date [...] Active Additional Information Patient taking differently:800 mg [id number] PRN, Pain, Breakthrough, Take with Meals, Reported [...] as of this encounter (statuses as of 11/22/2022) Active Problems Problem Noted Date Severe sleep [...] as of this encounter (statuses as of 11/22/2022) Immunizations Name Administration Dates Next Due COVID-19 mRNA, LNP-s, No Pre serve, 2-Dose Series (Moderna) 07/15/2020,06/24/2020 Pneumococcal Conjugate Vacci ne, 20-valent ([id number]) 03/16/2022 SEASONAL INFLUENZA, PF, 6 M & [...] Discussed due to patient's condition Care Teams Funeral Arranger Relationship Specialty Start Date End Date Amy Carey MD [address] [facility] [place] [address] PCP - General Internal Medicine 03/10/21 documented as of this encounter
--- OUTSIDE RECORDS SUMMARY | 2023-03-07 22:08 | External Medical Summary | Summary of Care ---
Author Name Unknown Organization [facility] Address [address] [place] [address] Phone [phone] Care Team Providers Care Electronics Engineering Professor Name Role Phone Amy Carey MD Primary Care Provider [phone] Reason for Visit * Reason Onset Date Comments Follow Up The pt stated he is here for a follow up appointmentThe pt stated he has chest pain that has been present for approx 1 month since he had an URI. Pt describes the pain as pressure. Medication Administration 11/16/2022 Flu an d/or Pneumo Inj Encounter Details Date Type Department Care Team Description 11/16/2022 Office Visit General Internal Medicine [facility] [address] [place] [address] Amy Carey MD [address] [place] [address] HTN, goal below 130/80*; Need for prophylactic vaccination and inoculation against influenza; Excessive anger; Severe sleep apnea; Screening for diabetes mellitus; History of 2019 novel coronavirus disease (COVID-19); Chest discomfort; History of synovitis; Current moderate episode of major depressive disorder without prior episode (HCC) Allergies Active Allergy Reactions Severity Noted Date Comments Cat Dander Anaphylaxis High 07/29/2022 Dust Low 07/29/2022 Sinus congestion Pollen Low 07/29/2022 Sinus congestion documented as of this encounter (statuses as of 11/16/2022) Medications Medication Sig Dispensed Refills Start Date [...] Active Additional Information Patient taking differently:800 mg [id number] PRN, Pain, Breakthrough, Take with Meals, Reported on 11/16/2022 amLODIPine Besylate 10 MG Oral Tablet (Norvasc)Indicat ions:HTN, goal below 130/80 Take 1 Tablet by mouth in the morning. Inc 11/16/2022. 90 Tablet 1 3 Active amLODIPine Besylate 5 MG Oral Tablet (Norvasc)Indicat ions:HTN, goal below 130/80 TAKE 1 TABLET BY MOUTH IN THE MORNING - BLOOD PRESSURE CHECK IN 2 TO 3 WEEKS. 90 Tablet 3 3 11/17/19 23 Discontinued(Med ication/Dose Changed) Doxycycline Hyclate 100 MG Oral CapsuleIndicatio ns:Effusion, right knee,Rupture of posterior cruciate ligament of right knee, initial encounter,Lyme disease Take 1 Capsule by mouth in the morning and 1 Capsule before bedtime. 60 Capsule 0 3 11/17/19 23 Discontinued(End of Procedure) Amoxicillin 500 MG Oral Capsule (Amoxil)Indicati ons:Lyme disease Take 1 Capsule by mouth in the morning and 1 Capsule at noon and 1 Capsule before bedtime. Do all this for 28 days. 84 Capsule 0 3 11/17/19 23 Discontinued(End of Procedure) oxyCODONE-Acetam inophen 5-325 MG Oral Tablet (Percocet) Take 1 Tablet by mouth every 6 hours as needed for moderate Pain 10 Tablet 0 3 11/17/19 23 Discontinued Cephalexin 250 MG Oral Capsule (Keflex) Take 1 Capsule by mouth in the morning and 1 Capsule at noon and 1 Capsule in the evening and 1 Capsule before bedtime. Do all this for 10 days. Take the prescribed probiotic with your antibiotic. 40 Capsule 0 3 11/17/19 23 Discontinued(End of Procedure) Hospital, Clinic, or Other Facility Administered Medication Ordered Dose Route Frequency Start Date End Date Status Albuterol Sulfate (Proventil) (2.5 MG/3ML) 0.083% inhalation solution 2.5 mgIndications:Cold-sheila sohpie asthma without complication, unspecified asthma severity, unspecified whether persistent,History of tobacco use 2.5 mg NEBULIZER PRN 05/24/2022 05/24/2023 Active Albuterol Sulfate (Proventil) (5 MG/ML) 0.5% *conc* inhalation solution 2.5 mgIndications:Cold-sheila sophie asthma without complication, unspecified asthma severity, unspecified whether persistent,History of tobacco use 2.5 mg NEBULIZER PRN 05/24/2022 05/24/2023 Active documented as of this encounter (statuses as of 11/16/2022) Active Problems Problem Noted Date Severe sleep [...] as of this encounter (statuses as of 11/16/2022) Immunizations Name Administration Dates Next Due COVID-19 mRNA, LNP-s, No Pre serve, 2-Dose Series (Moderna) 07/15/2020,06/24/2020 Pneumococcal Conjugate Vacci ne, 20-valent ([id number]) 03/16/2022 SEASONAL INFLUENZA, PF, 6 M & Above, IM , (FLULAVAL or FLUZONE) 11/16/2022,12/09/2021,12/17/2020 Seasonal Influenza, Split, I IV3, With Preserve, Inj 07/15/2011 TDAP (age 10 and older)(Boostrix) 03/10/2021 documented as of this encounter Social History Tobacco Use Types Packs/Day Years Used Date Smoking Tobacco: Former Cigarettes 0.3 5 Q uit: 12/15/2021 Smokeless Tobacco: Former Chew Quit: 2018 Tobacco Cessation:Counseling Given: Not Answered Comments: Alcohol Use Standard Drinks/Week Comments Yes [...] on file documented as of this encounter Last Filed Vital Signs Vital Sign Reading Time Taken Comments Blood Pressure 136/92 11/16/2022 4:01 PM EDT Pulse 84 11/16/2022 4:01 PM EDT Temperature 36.7 C (98 F) 11/16/2022 4:01 PM EDT Respiratory Rate - - Oxygen Saturation 95% 11/16/2022 4:01 PM EDT Inhaled Oxygen Concentration - - Weight 104 kg (229 lb 3.2 oz) 11/16/2022 4:01 PM EDT Height - - Body Mass Index 35.14 08/27/2022 11:39 AM EDT documented in this encounter Progress Notes * Amy Carey MD - 11/16/2022 4:21 PM EDT The 1st 2 to get his card SUBJECTIVE: Arsh Butler is a 40 year old male. Chief Complaint Patient presents with Follow Up The pt stated he is here for a follow up appointment The pt stated he has chest pain that has been present for approx 1 month since he had an URI. Pt describes the pain as pressure. Medication Administration Flu and/or Pneumo Inj HPI: 6 mth fu I have reviewed the patient's medications and allergies, past medical, surgical, social and family history, updating these as appropriate. See Histories section of the electronic medical record for adisplay of this information. 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 Started Paxil 10 mg which was later discontinued and added Wellbutrin because of history of snoring, fatigue, witnessed apnea, restless leg, no am headaches, + daytime somnolence and nappingwhen he is less busy. referred to sleep clinic. 06/09/2021--notes that he had difficulty sleeping after taking the 2nd dose of Wellbutrin around 3:00 p.m.. He is only taking it once a day, mood has been stable. -was switched to the XL form. --mood stable 07/06, 12/06 Quit smoking and also chewing tobacco 05/2021 , gradually gained weight as noted above. cut back on alcohol to maybe once a month, continues to use marijuana twice a month. Occasional soda, no coffee. Cxr neg -03/2022. HTN> 03/08--took amlodipine only the 1st prescription, did not have any side effects, did not come in forfollow-up blood pressure check. 06/06-wt gain ct ;blood pressure better at Does not fast food, eats restaurant Skips BF, coffee 2 c in am, lunch from home, dinner 6-7pm , snacks in evening and is trying to cut back. 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 Labs are due Using the inhaler did help in the winter, not using Flonase since started the CPAP 06/22/22-Results of Pulmonary Function Test: normal and Positive Bronchodilator response is noted only in smaller airways.--continue albuterol inhaler as needed for wheezing Has appointment with Dermatology 08/12/2021 to evaluate multiple moles.--he was a no-show Denies chg in moles that he can see. Has cyst in left wrist x 15 yrs, may have inc in size recently, no pain, no weakness hand --saw Ortho, had ultrasound 04/06/22 - consistent with a ganglion on cyst close to the radial arterybut not communicating, was advised excision but awaiting sleep study to determine location of surgery H/o left ACL repair in 1997, later had a growth on the lateral aspect of Knee removed twice by Dr. Felipe, states it was a MRSA infection. Seen 05/24/22 for pain and swelling of the right knee after a ski injury in March, hyper extendedwhile coming down a slope x-ray knee was normal, had been taking ibuprofen, given Medrol Dosepak with some improvement, so Dr. Kat, MRI was ordered, states he logged in for the tele video appointment but nobody came on on June 02 continues to have swelling and pain 05/29/22-MRI Knee-IMPRESSION 1. Intra-articular cartilage body in the anterior intercondylar notch. 2. Deep cartilage fissure at the junction of the medial and odd patellar facets. 3. Bipartite patella. 4. Prepatellar subcutaneous edema. 5. Moderate joint effusion. 6. Mucoid degeneration of the medial meniscus, without a discrete tear 07/29/2022--had follow-up with Ortho 06/23/2022, right knee arthroscopy with removal of loose body synovial fluid analysis had been discussed, due to intermittent effusions he was tested for Lyme disease and positive for both IgM and IgG antibodies, --was asked if he had any recent tick bites and hadadmitted to 2 tick bites recently, denies any other rash or any other joint pain, was given prescription for Doxycycline bid for 1 month. 11/16/2022---right knee arthroscopy partial synovectomy on 08/27/22, borrelia neg, no crystals, synovitis--DD lyme /inflm--> lyme IgG and IgM were +). --given doxy bid x 30 days 06/25/22, amox 500mg tid x 28d, then keflex 250mg qid x10 08/27/22 ---labs to rule out inflammatory arthritis ordered to be done in 4 weeks and refer to Rheumatology for eval. _tests ordered but done yet , knee feels 95% better, he cx rheum appt --had not had labs 03/07;06/05;12/05;03/0803/24/22-Normal TSH, CMP, TG 206, TC 217, LDL 137, CBC- moderate reactive lymphocytes slightly high hematocrit 49.3, ferritin 279. -start low-cholesterol diet. -repeat fasting labs in 6 months 12/06--lab due Donated blood before 1984, declines HIV testing as had only 1 partner for the last 12 years and prior to that one. -willing to have hepatitis B antibody checked for immunity-lab due Was sick 1 mth ago with travis,daughter aged 12 was sick wa sid sick--none of them were tested - daughter aged 20 was visiting sick later and tested + --sev PRATT, Sinus pressure,no fever/sob/cough -now chest pressure over heart -intermittent rest, no worse on exertion.no CALDERA/wheezing/cough. Consider booster Immunization History Administered Date(s) Administered COVID-19 mRNA, LNP-s, No Preserve, 2-Dose Series (Moderna) 06/24/2020, 07/15/2020 Pneumococcal Conjugate Vaccine, 20-valent ([id number]) 03/16/2022 SEASONAL INFLUENZA, PF, 6 M & Above, IM , (FLULAVAL or FLUZONE) 12/17/2020, 12/09/2021, 11/16/2022 Seasonal Influenza, Split, IIV3, With Preserve, Inj 07/15/2011 TDAP (age 10 and older)(Boostrix) 03/10/2021 Hemoglobin AIC Results: No results found for: HEMOGLOBIN A1C Patient Active Problem List Diagnosis Code History of MRSA infection Z86.14 Current moderate episode of major depressive disorder without prior episode (HCC) F32.1 Excessive anger R45.4 Witnessed episode of apnea R06.81 Restless legs syndrome G25.81 Class 1 obesity due to excess calories with serious comorbidity in adult E66.09 Numerous skin moles D22.9 History of tobacco use Z87.891 Marijuana smoker, episodic F12.90 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 12/09/2021. 1 mL 0 Ventolin HFA 108 (90 Base) MCG/ACT Inhalation Aerosol Solution Inhale by mouth 2 Puffs every 4 hours as needed for Wheezing. 18 g 0 amLODIPine Besylate 5 MG Oral Tablet (Norvasc) TAKE 1 TABLET BY MOUTH IN THE MORNING - BLOOD PRESSURE CHECK IN 2 TO 3 WEEKS. 90 Tablet 3 buPROPion HCl ER (XL) 150 MG Oral Tablet Extended Release 24 Hour (Wellbutrin XL) Take 1 Tablet by mouth in the morning. Since 06/04/21. 90 Tablet 1 Ibuprofen 800 MG Oral Tablet (Motrin) Take 1 Tablet by mouth in the morning and 1 Tablet at noon and 1 Tablet before bedtime. Take with Meals. (Patient taking differently: Take 1 Tablet by mouth every 8 hours as needed for Pain, Breakthrough. Take with Meals) 45 Tablet 0 Current Facility-Administered Medications Medication Dose Route Frequency Provider Last Rate Last Admin Albuterol Sulfate (Proventil) (2.5 MG/3ML) 0.083% inhalation solution 2.5 mg 2.5 mg Nebulizer PRN Amy Carey MD 2.5 mg at 06/22/22 1356 Albuterol Sulfate (Proventil) (5 MG/ML) 0.5% *conc* inhalation solution 2.5 mg 2.5 mg Nebulizer Chadwick Carey MD Past Medical History: Diagnosis Date Asthma, mild intermittent Past Surgical History: Procedure Laterality Date HAND/FINGER SURGERY NEC benign lesion KNEE ARTHROSCOPY/REMOVE OBJECT Right 08/27/2022 RIGHT ARTHROSCOPY KNEE REMOVAL LOOSE BODY performed by Shawn Kat MD at [facility] KNEE ARTHROSCOPY/SYNOVECTOMY, LTD Right 08/27/2022 ARTHROSCOPY KNEE LIMITED SYNOVECTOMY performed by Shawn Kat MD at OR [facility] REPAIR OF KNEE CARTILAGE Left 02/14/1994 ACL Review of patient's allergies indicates: Allergen Reactions Cats [Cat Dander] Anaphylaxis Environmental [Dust] Sinus congestion Environmental [Pollen] Sinus congestion No family history on file. Social History Tobacco Use Smoking status: Former Packs/day: 0.25 Years: 5.00 Pack years: 1.25 Types: Cigarettes Quit date: 12/15/2021 Years since quittin.9 Smokeless tobacco: Former Types: Chew Quit date: 2017 Tobacco comments: Vaping Use Vaping Use: Never used Substance Use Topics Alcohol use: Yes Alcohol/week: 5.0 standard drinks Types: 6 12 oz of beer per week Comment: 6p/wk Drug use: Not Currently Types: Marijuana OBJECTIVE: BP 136/92 | Pulse 84 | Temp 36.7 C (98 F) | Wt 104 kg (229 lb 3.2 oz) | SpO2 95% | BMI 35.14 kg/m | BSA 2.23 m PHYSICAL EXAM: General: alert, healthy, no distress, well developed Neck: supple, no adenopathy, thyroid Not enlarged without nodularity Heart: regular rhythm and rate,No murmurs. Lungs: lungs clear to auscultation Extremities: no edema Left knee--from with crepitus Rt knee-, resolved swelling, nontender. ASSESSMENT/PLAN: HTN, goal below 130/80 (Primary) - BASIC METABOLIC PANEL; Future; Expected date: 11/16/2022 - amLODIPine Besylate 10 MG Oral Tablet (Norvasc); Take 1 Tablet by mouth in the morning. Inc 11/16/2022. - EKG; Future; Expected date: 11/16/2022 History of 2019 novel coronavirus disease (COVID-19) - EKG; Future; Expected date: 11/16/2022 Chest discomfort - EKG; Future; Expected date: 11/16/2022 EKG-normal sinus rhythm at 75 B p.m., no abnormalities. Await to see if symptoms improve with better blood pressure control, if symptoms persist or worsen advised to schedule appointment sooner or goto ER for evaluation. History of synovitis Status post surgery in August, labs be done as per HPI. Need for prophylactic vaccination and inoculation against influenza - INFLUENZA VACC, QUAD, PF, 6 MONTHS & UP, 0.5 ML, IM Severe sleep apnea Continue CPAP, message sent to Sleep Clinic regarding ordering night oximetry as per last notes Screening for diabetes mellitus - HEMOGLOBIN A1C; Future; Expected date: 11/16/2022 Excessive anger Current moderate episode of major depressive disorder without prior episode (HCC) Continue current medications 40 min total time spent with patient, time spent reviewing subspecialty notes, diagnostic studies done, follow-up orders/medication refills,over 1/2 time spent in counseling, coordinating care. Follow Up: Return in about 4 weeks (around 12/14/2022) for Return with Physician, Fasting Labs Soon. | For: Return with Physician, Fasting Labs Soon Amy Carey MD 11/16/2022 * Chidi Morgan LPN - 11/16/2022 4:06 PM EDT PRE - ADMINISTRATION DOCUMENTATION Are you experiencing any cold symptoms or fever? No Have you had Guillain-[place] Syndrome (an illness that causes paralysis) within the last 6 weeks? No Have you had the flu shot in the past? YES Have you ever had a reaction to the flu shot? No Chidi Morgan LPN, 11/16/2022 4:06 PM Immunization Administration Documentation Time Out Procedure Performed: Yes Patient Identified (Ask Name/Date of ): Yes Does the patient have a fever greater than 101 degrees today? No Patient allergic to latex? No VFC Stock: No Immunization(s) verified: Yes, Immunization Name: Flu, VIS Sheet(s) given: Yes Verified Side and Site: Yes Verified Shot(s) with Parent(s)/Patient: Yes documented in this encounter Nursing Notes * Chidi Morgan LPN - 11/16/2022 4:01 PM EDT Chief Complaint Patient presents with Follow Up The pt stated he is here for a follow up appointment documented in this encounter Plan of Treatment Scheduled Orders Name Type Priority Associated Diagnoses Orde r Schedule HEMOGLOBIN A1C Lab Routine Screening for diabetes mellitus Expected: 11/16/2022 (Approximate), Expires: 11/16/2023 BASIC METABOLIC PANEL Lab Routine HTN, goal below 130/80 Expected: 11/16/2022 (Approximate), Expires: 11/16/2023 EKG EKG Routine HTN, goal below 130/80 History of 2019 novel coronavirus disease (COVID-19) Chest discomfort Expected: 11/16/2022 (Approximate), Expires: 12/18/2023 Health Maintenance Due Date Last Done Comments [...] Not on filedocumented as of this encounter Visit Diagnoses Diagnosis HTN, goal below 130/80- Primary Unspecified essential hypertension Need for prophylactic vaccination and inoculation against influenza Excessive anger Undersocialized conduct disorder, aggressive type, unspecified Severe sleep apnea Screening for diabetes mellitus History of 2019 novel coronavirus disease (COVID-19) Chest discomfort Other chest pain History of synovitis Personal history of other musculoskeletal disorders Current moderate episode of major depressive disorder without prior episode (HCC) documented in this encounter Advance Directives Latest Code Status [...] Discussed due to patient's condition Care Teams Electronics Engineering Professor Relationship Specialty Start Date End Date Amy Carey MD [address] [facility] [place] [address] PCP - General Internal Medicine 03/10/21 documented as of this encounter"
--- OUTSIDE RECORDS SUMMARY | 2023-03-07 22:08 | External Medical Summary | Summary of Care ---
Author Name Unknown Organization [facility] Address [address] [place] [address] Phone [phone] Care Team Providers Care Magnet Valve Assembler Name Role Phone Amy Carey MD Primary Care Provider [phone] Reason for Visit * Reason Comments eRx-Medication Refill Encounter Details Date Type Department Care Team (Late st Contact Info) Description 01/14/2023 Refill General Internal Medicine [facility] [address] [facility] [place] [address] Amy Carey MD [address] [place] [address] Current moderate episode of major depressive disorder without prior episode (HCC); Excessive anger Allergies Active Allergy Reactions Criticality Noted Date Comments Cat Dander Anaphylaxis High 07/29/2022 Dust Low 07/29/2022 Sinus congestion Pollen Low 07/29/2022 Sinus congestion documented as of this encounter (statuses as of 01/14/2023) Medications Medication Sig Dispensed Refills Start Date End Date Status Fluticasone Propionate 50 MCG/ACT Nasal Suspension (Flonase)Indicati ons:Seasonal allergic rhinitis, unspecified trigger,Bilateral chronic serous otitis media Administer into each nostril [address] 12/09/2021. 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 18 g 0 12/09/2021 Active Ibuprofen 800 MG Oral Tablet (Motrin) Take 1 Tablet by mouth in the morning and 1 Tablet at noon and 1 Tablet before bedtime. Take with Meals. 45 Tablet 0 08/27/2022 Active Additional Information Patient taking differently:800 mg [id number] PRN, Pain, Breakthrough, Take with Meals, Reported on 11/16/2022 amLODIPine Besylate 10 MG Oral Tablet (Norvasc)Indicati ons:HTN, goal below 130/80 Take 1 Tablet by mouth in the morning. Inc 11/16/2022. 90 Tablet 1 11/16/2022 Active buPROPion HCl ER (XL) 150 MG Oral Tablet Extended Release 24 Hour (Wellbutrin XL)Indications:Cu rrent moderate episode of major depressive disorder without prior episode (HCC),Excessive anger TAKE 1 TABLET ONCE DAILY IN THE MORNING. 90 Tablet 1 01/14/2023 Active buPROPion HCl ER (XL) 150 MG Oral Tablet Extended Release 24 Hour (Wellbutrin XL)Indications:Cu rrent moderate episode of major depressive disorder without prior episode (HCC),Excessive anger Take 1 Tablet by mouth in the morning. Since 06/04/21. 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 023 Current moderate episode of major depressive disorder without prior episode 06/09/2021 Excessive anger 06/09/2021 Witnessed episode of apnea 06/09/2021 Restless legs syndrome 06/09/2021 Class 1 obesity due to exces s calories with serious comorbidity in adult 06/09/2021 Numerous skin moles 06/09/2021 History of tobacco use 06/09/2021 Marijuana smoker, episodic 06/09/2021 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 Monthly or less 12/17/2020 Q2: How many drinks containi ng alcohol do you have on a typical day when you are drinking? 1 or 2 12/17/2020 Q3: How often do you have si x or more drinks on one occasion? Never 12/17/2020 PHQ-2 Answer Date Recorded PHQ Adult Total Score 0 05/24/2022 Hunger Vital Sign Answer Date Recorded Within the past 12 months, y ou worried that your food would run out before you got the money to buy more. Never true 05/25/19 23 Within the past 12 months, t he food you bought just didn't last and you didn't have money to get more. Never true 05/24/2022 Sex and Gender Information Value Date Recorded Sex Assigned at Not on file Gender Identity Not on file Sexual Orientation Not on file Job Start Date Occupation Industry Not on file Not on file Not on file documented as of this encounter Miscellaneous Notes * Telephone Encounter - Louise Apple RPh - 01/14/2023 4:18 PM ESTSigned Prescriptions: Disp Refills buPROPion HCl ER (XL) 150 MG Oral Tablet E*90 Tab*1 Sig: TAKE 1 TABLET ONCE DAILY IN THE MORNING.Authorizing Provider: Chastity CAREY User: LOUISE APPLE-------- documented in this encounter Plan of Treatment Health Maintenance Due Date Last Done Comments Hepatitis B (1 of 3 - 3-dose series) 1979 HIV Screening 1994 Hepatitis C Screening 1997 COVID-19 Vaccine (2022-24 season) 2022 07/15/2020, 06/24/2020 Depression Screening 05/25/2023 [...] as of this encounter Visit Diagnoses Diagnosis Current moderate episode of major depressive disorder without prior episode (HCC) Excessive anger Undersocialized conduct disorder, aggressive type, unspecified documented in this encounter Advance Directives Latest [...] Discussed due to patient's condition Care Teams Magnet Valve Assembler Relationship Specialty Start Date End Date Amy Carey MD [address] [place] [address] PCP - General Internal Medicine 03/10/21 documented as of this encounter
--- OUTSIDE RECORDS SUMMARY | 2023-03-07 22:08 | External Medical Summary | Summary of Care ---
Author Name Unknown Organization [facility] Address [address] [place] [address] Phone [phone] Care Team Providers Care Informatica Developer Name Role Phone Amy Carey MD Primary Care Provider [phone] Encounter Details Date Type Department Care Team Description 10/07/2022 Telephone Pulmonary Medicine, [facility] [address] [place] [address] Jasper Jade, [address] [place] [address] Allergies Active Allergy Reactions Severity Noted Date Comments Cat Dander Anaphylaxis High 07/29/2022 Dust Low 07/29/2022 Sinus congestion Pollen Low 07/29/2022 Sinus congestion documented as of this encounter (statuses as of 11/30/2022) Medications Medication Sig Dispensed Refills Start Date [...] Active Additional Information Patient taking differently:800 mg [id number] PRN, Pain, Breakthrough, Take with Meals, Reported [...] as of this encounter (statuses as of 11/30/2022) Active Problems Problem Noted Date Severe sleep [...] as of this encounter (statuses as of 11/30/2022) Immunizations Name Administration Dates Next Due COVID-19 mRNA, LNP-s, No Pre serve, 2-Dose Series (Moderna) 07/15/2020,06/24/2020 Pneumococcal Conjugate Vacci ne, 20-valent ([id number]) 03/16/2022 SEASONAL INFLUENZA, PF, 6 M & [...] as of this encounter Miscellaneous Notes * Addendum Note - Jasper Jade DO - 11/30/2022 12:03 PM EDTAddended by: JASPER JADE on: 11/30/2022 12:03 PM Modules accepted: Orders * Telephone Encounter - Rosy Chambers LPN - 11/24/2022 2:37 PM EDT Pt aware . Agrees to the pressure change * Telephone Encounter - Jasper Jade DO - 11/23/2022 7:46 AM EDT Please let pt know that I reviewed his PAP DL and it looks like he may benefit from a pressure adjustment. Right now his pressure is 5-26jcZ06, and I suggest adjusting it to 8-49ibH49. If he is in agreement please let me know, I will make the change (DME: [facility]). Denise, can you set up a [...] provider for review * Telephone Encounter - Jasper Jade DO - 11/19/2022 12:29 PM EDT [...] as of this encounter Visit Diagnoses Diagnosis SELWYN (obstructive sleep apnea)- Primary Obstructive sleep apnea (adult) (pediatric) documented in this encounter Advance Directives Latest [...] Discussed due to patient's condition Care Teams Informatica Developer Relationship Specialty Start Date End Date Amy Carey MD [address] [place] [address], [place] [address] PCP - General Internal Medicine 03/10/21 documented as of this encounter
--- OUTSIDE RECORDS SUMMARY | 2023-03-07 22:08 | External Medical Summary | Summary of Care ---
Author Name Unknown Organization [facility] Address [address] [place] [address] Phone [phone] Care Team Providers Care Computing Services Director Name Role Phone Amy Carey MD Primary Care Provider [phone] Reason for Visit * Reason Onset Date Comments Test Results 09/14/2022 Encounter Details Date Type Department Care Team Description 09/14/2022 Telephone General Internal Medicine [facility] [address] [facility] [place] [address] Amy Carey MD [address] [place] [address] Test Results Allergies Active Allergy Reactions Severity Noted Date Comments Cat Dander Anaphylaxis High 07/29/2022 Dust Low 07/29/2022 Sinus congestion Pollen Low 07/29/2022 Sinus congestion documented as of this encounter (statuses as of 09/14/2022) Medications Medication Sig Dispensed Refills Start Date [...] as of this encounter (statuses as of 09/14/2022) Active Problems Problem Noted Date Cold-induced asthma [...] as of this encounter (statuses as of 09/14/2022) Immunizations Name Administration Dates Next Due COVID-19 [...] encounter Miscellaneous Notes * Telephone Encounter - Amy Carey MD - 09/14/2022 5:35 PM EDT Please route to crew scheduler * Telephone Encounter - Chidi Morgan [...] 09/21/2022 Office Visit Rheumatology Danny Adler MD [address] [employer] [place] [address] 09/29/2022 Office Visit Orthopedics Shawn Kat MD [address] [place] [address] 11/16/2022 Office Visit Internal Medicine Amy Carey MD [address] [facility] [place] [address] Health Maintenance Due Date Last Done Comments [...] Discussed due to patient's condition Care Teams Computing Services Director Relationship Specialty Start Date End Date Amy Carey MD [address] [place] [address], [place] [address] PCP - General Internal Medicine 03/10/21 documented as of this encounter
--- OUTSIDE RECORDS SUMMARY | 2023-03-07 22:08 | External Medical Summary | Summary of Care ---
Author Name Unknown Organization [facility] Address [address] [place] [address] Phone [phone] Care Team Providers Care Hair Boiler Name Role Phone Amy Carey MD Primary Care Provider [phone] Encounter Details Date Type Department Care Team Description 10/07/2022 Telephone Pulmonary Medicine, [facility] [address] [place] [address] Blanca Jade, [address] [facility] [place] [address] Allergies Active Allergy Reactions Severity Noted Date Comments Cat Dander Anaphylaxis High 07/29/2022 Dust Low 07/29/2022 Sinus congestion Pollen Low 07/29/2022 Sinus congestion documented as of this encounter (statuses as of 11/19/2022) Medications Medication Sig Dispensed Refills Start Date [...] Active Additional Information Patient taking differently:800 mg [id number] PRN, Pain, Breakthrough, Take with Meals, Reported [...] as of this encounter (statuses as of 11/19/2022) Active Problems Problem Noted Date Severe sleep [...] as of this encounter (statuses as of 11/19/2022) Immunizations Name Administration Dates Next Due COVID-19 mRNA, LNP-s, No Pre serve, 2-Dose Series (Moderna) 07/15/2020,06/24/2020 Pneumococcal Conjugate Vacci ne, 20-valent ([id number]) 03/16/2022 SEASONAL INFLUENZA, PF, 6 M & [...] Discussed due to patient's condition Care Teams Hair Boiler Relationship Specialty Start Date End Date Amy Carey MD [address] [facility] [place] [address] PCP - General Internal Medicine 03/10/21 documented as of this encounter
--- OUTSIDE RECORDS SUMMARY | 2023-03-07 22:08 | External Medical Summary | Summary of Care ---
Author Name Unknown Organization [facility] Address [address] [place] [address] Phone [phone] Care Team Providers Care Ship'S Surveyor Name Role Phone Amy Carey MD Primary Care Provider [phone] Reason for Visit * Reason Onset Date Comments Test Results 09/14/2022 Encounter Details Date Type Department Care Team Description 09/14/2022 Telephone General Internal Medicine [facility] [address] [facility] [place] [address] Amy Carey MD [address] [place] [address] Test Results Allergies Active Allergy Reactions Severity [...] encounter Miscellaneous Notes * Telephone Encounter - Chidi MorganIGOR - 09/14/2022 3:25 PM EDT Provider to [...] 09/21/2022 Office Visit Rheumatology Danny Adler MD [address] [facility] [place] [address] 09/29/2022 Office Visit Orthopedics Shawn Kat MD [address] [place] [address] 11/16/2022 Office Visit Internal Medicine Amy Carey MD [address] [facility] [place] [address] Health Maintenance Due Date Last Done Comments [...] Discussed due to patient's condition Care Teams Ship'S Surveyor Relationship Specialty Start Date End Date Amy Carey MD [address] [place] [address], [place] [address] PCP - General Internal Medicine 03/10/21 documented as of this encounter
--- OUTSIDE RECORDS SUMMARY | 2023-03-07 22:08 | External Medical Summary | Summary of Care ---
Author Name Unknown Organization [facility] Address [address] [place] [address] Phone [phone] Care Team Providers Care Accountant Systems Name Role Phone Amy Carey MD Primary Care Provider [phone] Encounter Details Date Type Department Care Team Description 10/07/2022 Telephone Pulmonary Medicine, [facility] [address] [place] [address] Blanca Jade, [address] [address] Allergies Active Allergy Reactions Severity Noted Date [...] Active amLODIPine Besylate 5 MG Oral Tablet (Norvasc)Indicati ons:HTN, goal below 130/80 TAKE 1 TABLET BY [...] Since 06/04/21. 90 Tablet 1 06/15/2022 Active Ibuprofen 800 MG Oral Tablet (Motrin) Take 1 Tablet by mouth in the morning and 1 Tablet at noon and 1 Tablet before bedtime. Take with Meals. 45 Tablet 0 08/27/2022 Active Additional Information Patient taking differently:800 mg HomnS6C PRN, Pain, Breakthrough, Take with Meals, Reported on 11/16/2022 oxyCODONE-Acetami nophen 5-325 MG Oral Tablet (Percocet) Take 1 Tablet by mouth every 6 hours as needed for moderate Pain 10 Tablet 0 08/27/2022 Discontinued Hospital, Clinic, or Other Facility Administered [...] of 11/16/2022) Active Problems Problem Noted Date Cold-induced asthma [...] (Moderna) 07/15/2020,06/24/2020 Pneumococcal Conjugate Vacci ne, 20-valent ([id number]) 03/16/2022 SEASONAL INFLUENZA, PF, 6 M & [...] Discussed due to patient's condition Care Teams Accountant Systems Relationship Specialty Start Date End Date Amy Carey MD [address] [facility] [place] [address] PCP - General Internal Medicine 03/10/21 documented as of this encounter
[2023-03-07] MEDS: ACETAMINOPHEN 325 MG TAB PO SCH (23:05)
[2023-03-08] MEDS: HYDROmorphone INJ 0.5 MG/0.5 ML SYR IV PRN (02:51)
--- NOTE | 2023-03-08 07:06 | Hospitalist Progress Note ---
Date of Service March 08, 2023 Assessment & Plan (1) Right lumbar radiculitis: (2) Elevated ALT measurement: (3) Intractable low back pain: (4) Asthma: (5) HTN (hypertension): Plan Right lumbar radiculitis: -Currently hemodynamically stable and stable on RA -Presented to the ED with acute onset of lumbar back pain with radiation down the RLE -Associated with RLE paresthesias -No red flag symptoms or recent falls -Xray of the lumbar spine shows "Chronic L5 pars defects with grade 1 spondylolisthesis" -Pain was uncontrolled despite multiple doses of morphine, toradol and a dose of dilaudid in the ED -Will continue pain control with scheduled Tylenol, heat, lidocaine patch and prn dilaudid for severe pain -Lumbar MRI showed chronic bilateral pars defects of L5 with grade 1 spondylolisthesis of L5 on S1, right subarticular disc protrusion at L3-L4 with mass effect on descending right L4 nerve roots, and degenerative changes at L4- L5 resulting in right and left foraminal narrowing -Will place ortho spine consult -Will obtain ECG and CXR in case he is taken to the OR during this admission -Fall precautions, PT/OT consults placed -SQ lovenox for DVT PPX -Will keep NPO until seen by Ortho spine. Elevated ALT measurement: -ALT mildly elevated at 55 -Patient does not report significant alcohol intake -Denies recent Tylenol use -resolved on 03/08. Intractable low back pain -See right lumbar radiculitis Asthma -Stable on RA -Lungs are clear -Incentive spirometry -PRN albuterol HTN (hypertension) -Stable -Continue amlodipine Admission and Anticipated Discharge Date Admission Date: March 07, 2023 Supervising Physician Co-Signing Physician Notes Attending attestation Pt seen and examined in concert with Dr. Davis. In agreement with the documented findings as noted in the resident documentation with any exceptions or additions as noted here. Pain well controlled positionally with current medication regimen. On examination, S1/S2 nl RRR no MCG. CTAB. Abd NT/ND BS+ve. Decreased sensation on the lateral surface of the RLE past the knee LBP with right lumbar radiculitis - ortho spine consult - continue pain management with IV hydromorphone and PO APAP, to adjust based on response and interventions from Dr. Pulido HTN - continue amlodipine, monitor BP Elevated ALT - resolved on repeat testing. Else see resident documentation as noted. Subjective Patient states that his pain is doing okay when laying still. With discussing his history he has had some on and off pain that has been getting worse but then he went to a chiropractor yesterday and 2 hours later started to have a lot of pain. Denies any saddle anesthesia or incontinence. Review of Systems Review of Systems: All systems reviewed & are unremarkable except as noted in Subjective Physical Exam Physical Exam: General: In mild distress due to pain, stated age, well-nourished, good hygiene HEENT: Normocephalic, atraumatic, no scleral icterus, pupils around round, symmetrical, and reactive to light, moist mucus membranes, trachea midline, no thyromegaly Chest/Pulm: No respiratory distress, symmetrical chest expansion, clear breath sounds throughout Cardiac: RRR, no murmurs noted Abdomen: Negative for ascites and bruising, normoactive bowel sounds, soft, non- tender to palpation throughout Musculoskeletal: Patient is tender to palpation over the lower lumbar spine and right lumbar paravertebral muscles, decreased strength with right hip flexion due to pain, otherwise symmetrical strength in the BL LE's Extremities: Radial, dorsalis pedis, and posterior tibial pulses are intact and symmetrical, no edema noted in the BL LE's Skin: Warm, dry, no rashes , lesions, or scars noted Neuro: Alert and oriented to person, place, month, year, and president, no focal defects, decreased sensation in the RLE in the L4/L5 dermatome, 2+ patellar and Achilles reflex BL Psych: mild distress due to pain, but polite and cooperative during the exam Results & Data Results & Data Vital Signs (Past 12 Hours) Vital Signs Temp Pulse Resp BP Pulse Ox Pulse Ox O2 Del Method 03/07/23 20:40 36.6 C 113 H 20 164/101 H 95 Room Air 03/07/23 20:35 36.6 C 113 H 20 164/101 H 95 Room Air 03/07/23 20:35 95 03/07/23 20:05 36.8 C 98 H 16 169/89 H 98 Room Air O2 Del Method 03/07/23 20:40 03/07/23 20:35 03/07/23 20:35 Room Air 03/07/23 20:05 Resident Activity Tracking Resident Involvement: Resident Care Provided Care Provided: Adult Hospital Medicine
[2023-03-08 07:08] LABS: Basophils # (auto) 0.02 K/uL (0.00-0.20); Basophils % (auto) 0.1 %; Hematocrit (blood only) 44.1 % (42.0-52.0); Hemoglobin 15.4 g/dl (14.0-18.0); Immature Granulocytes # (auto) 0.05 K/uL (0.01-0.20); Immature Granulocytes % (auto) 0.3 %; Lymphocytes # (auto) 1.29 K/uL (1.20-3.40); Mean Corpuscular Hemoglobin 30.1 pg (25.0-34.0); Mean Corpuscular Hgb Conc 34.9 g/dL (32.0-36.0); Mean Corpuscular Volume 86.1 fL (80.0-100.0); Mean Platelet Volume 9.5 fL (9.4-12.4); Monocytes # (auto) 0.29 K/uL (0.11-0.59); Neutrophils # (auto) 12.65 K/uL (1.40-6.50); Neutrophils % (auto) 88.6 %; Platelet Count 363 K/uL (130-400); RDW Coefficient of Variation 13.1 % (11.5-14.5); RDW Standard Deviation 41.3 fL (36.4-46.3); Red Blood Count 5.12 M/uL (4.70-6.10)
[2023-03-08 07:25] LABS: Albumin Level 4.3 gm/dl (3.4-5.0); BUN Creatinine Ratio 22.2 (10-20); Bilirubin Direct 0.1 mg/dl (0-0.2); Bilirubin,Total 0.4 mg/dl (0.2-1.0); Calcium 9.2 mg/dl (8.6-10.3); Creatinine Clr Calc Pharmacy 151.6 ml/min; Est GFR (African American) 131.5 ml/min; Est GFR (Non-African American) 113.5 ml/min; Potassium 3.9 mmol/L (3.5-5.1); Total Protein 6.9 gm/dl (6.0-8.3)
[2023-03-08] MEDS: amLODIPine BESYLATE 5 MG TAB PO SCH (09:07)
[2023-03-08] MEDS: buPROPion XL 150 MG TABCR PO SCH (09:43)
--- NOTE | 2023-03-08 10:30 | Orthopedic Consultation ---
Date of Consultation March 08, 2023 Assessment & Plan (1) Lumbar disc herniation with radiculopathy: MRI lumbar spine from yesterday available for review demonstrates evidence of anterior listhesis pars defect L5-S1 with bilateral foraminal stenosis. There is disc base collapse Modic disease L4-L5 with bilateral neuroforaminal disease and subarticular stenosis. L3-L4 there is the beginnings of retrolisthesis and evidence of an acute disc herniation on the right with caudal migration and significant encroachment the traversing L4 nerve root. Assessment lumbar disc herniation with radiculopathy. Plan at this time and leg discussed today with the patient reviewing his MRI findings and clinical course. While acknowledging he has anterolisthesis and disease at L5-S1 and L4-L5 this is not the current etiology of his symptom complex and limitation. We discussed treatment options to include continued rest medications and interventional pain management versus surgical intervention. Surgery would require a lumbar laminectomy L3-L4 on the right and partial discectomy. Risk benefits pros cons returns light detail. Patient would like to pursue surgery in light of his severe pain and presence of radiculopathy for the past 2 to 3 months. Will make him n.p.o. after midnight plan for or tomorrow. History of Present Illness Reason for Consultation: Severe right leg pain Attending Physician: Moise Alejandra MD History of Present Illness This is a 43-year-old male who presents yesterday with severe right leg pain and inability to ambulate. He states the symptoms began roughly December where he had pain rating in the right buttock anterior lateral thigh to the anterior right lower leg. Left lower extremity is asymptomatic. Symptoms are markedly worse yesterday after sitting on some bleachers when standing to exit the building. He has some improvement with narcotic medications and bedrest this morning. He still unable to get up out of bed and ambulate. Allergies Allergy/AdvReac Type Severity Reaction Status Date / Time No Known Allergies Allergy Unknown Verified 10/27/16 16:48 Home Medications Medication Instructions Recorded Confirmed Type Probiotic 1 gummy PO DAILY 03/07/23 03/07/23 History albuterol sulfate 90 mcg/actuation 2 puff inhalation UD PRN Other 03/07/23 03/07/23 History aerosol inhaler amlodipine 10 mg tablet 10 mg PO QAM 03/07/23 03/07/23 History bupropion HCl 150 mg 24 hr tablet, 150 mg PO QAM 03/07/23 03/07/23 History extended release Patient History Medical History Asthma Surgical History No significant past surgical history Social History Smoking Status: Never smoker Hx Alcohol Use: Yes Alcohol type: beer Hx Substance Use: No Preferred Language: Omani Communication Ability: Effective Power System Engineer Required: No Beliefs That Will Affect Care: None Current Living Situation Comment: Lives with Fiance. Feels Safe at Home: Yes Assistive Devices: None Physical Exam Physical Exam: On exam he is in obvious distress. Exhibits tension signs straight leg raising on the right negative on the left plus out of 5 plantarflexion dorsiflexion bilaterally. There is marked decrease in sensation to light touch and cold in the right lower extremity compared to left. Deep and reflexes absent. Results & Data Vital Signs (Past 12 Hours) Vital Signs Temp Pulse Resp BP Pulse Ox O2 Del Method 03/08/23 09:14 12 03/08/23 07:28 36.4 C L 91 H 127/78 95 Room Air
--- NOTE | 2023-03-08 11:28 | XRay Report ---
XR chest 1V portable CLINICAL HISTORY: pre-operative clearance TECHNIQUE: Single frontal radiograph of the chest was obtained. Comparison: None available at the time of this dictation. FINDINGS: No lines and tubes are seen. The cardiomediastinal silhouette is normal. The lungs are clear. No evid ence of pleural effusion or pneumothorax. IMPRESSION: No acute chest disease. ACT 112: Negative or not required by law. Electronically signed by: Chris Foster M.D. 03/08/2023 11:27 AM
--- NOTE | 2023-03-08 12:18 | Electrocardiogram Report ---
Test Reason : Blood Pressure : / mmHG Vent. Rate : 104 BPM Atrial Rate : 104 BPM P-R Int : 160 ms QRS Dur : 082 ms QT Int : 338 ms P-R-T Axes : 052 072 009 degrees QTc Int : 444 ms Sinus tachycardia Otherwise normal ECG No previous ECGs available Confirmed by Moise Ritter ([id number]) on 03/08/2023 12:18:06 PM Referred By: REFERRED SELF Confirmed By:Bereket Ritter
--- NOTE | 2023-03-09 07:07 | Hospitalist Progress Note ---
Date of Service March 09, 2023 Assessment & Plan (1) Right lumbar radiculitis: (2) Elevated ALT measurement: (3) Intractable low back pain: (4) Asthma: (5) HTN (hypertension): Plan Right lumbar radiculitis: -Currently hemodynamically stable and stable on RA -Presented to the ED with acute onset of lumbar back pain with radiation down the RLE -Associated with RLE paresthesias -No red flag symptoms or recent falls -Xray of the lumbar spine shows "Chronic L5 pars defects with grade 1 spondylolisthesis" -Pain was uncontrolled despite multiple doses of morphine, toradol and a dose of dilaudid in the ED -Will continue pain control with scheduled Tylenol, heat, lidocaine patch and prn dilaudid for severe pain -Lumbar MRI showed chronic bilateral pars defects of L5 with grade 1 spondylolisthesis of L5 on S1, right subarticular disc protrusion at L3-L4 with mass effect on descending right L4 nerve roots, and degenerative changes at L4- L5 resulting in right and left foraminal narrowing -Ortho spine consulted. -Fall precautions, PT/OT consults placed -SQ lovenox for DVT PPX, held prior to surgery. -Will go to the OR on 03/09 for right L3-L4 laminectomy surgery with Dr. Pulido. Elevated ALT measurement: -ALT mildly elevated at 55 -Patient does not report significant alcohol intake -Denies recent Tylenol use -resolved on 03/08. Intractable low back pain -See right lumbar radiculitis Asthma -Stable on RA -Lungs are clear -Incentive spirometry -PRN albuterol HTN (hypertension) -Stable -Continue amlodipine Admission and Anticipated Discharge Date Admission Date: March 07, 2023 Supervising Physician Co-Signing Physician Notes Attending attestation Pt seen and examined in concert with Dr. Davis. In agreement with the documented findings as noted in the resident documentation with any exceptions or additions as noted here. Pain well controlled postoperatively with current medication regimen. On examination, S1/S2 nl RRR no MCG. CTAB. Abd NT/ND BS+ve. Decreased sensation on the lateral surface of the RLE past the knee overall improved with good mvt bilateral foot at rest LBP with right lumbar radiculitis - ortho spine consult - continue pain management with IV hydromorphone and PO APAP, adjust as needed perioperatively HTN - continue amlodipine, monitor BP, consider adjustmnet based on sustained BP Elevated ALT - resolved on repeat testing. Else see resident documentation as noted. Subjective Patient seen bedside this morning. Currently n.p.o. for surgery in the OR today around 2 PM. Still having a great deal of back pain with movement. Still having pain in the right leg. No shortness of breath, abdominal pain, nausea or vomiting Review of Systems Review of Systems: All systems reviewed & are unremarkable except as noted in Subjective Physical Exam Physical Exam: General: In mild distress due to pain, stated age, well-nourished, good hygiene HEENT: Normocephalic, atraumatic, no scleral icterus, pupils around round, symmetrical, and reactive to light, moist mucus membranes, trachea midline, no thyromegaly Chest/Pulm: No respiratory distress, symmetrical chest expansion, clear breath sounds throughout Cardiac: RRR, no murmurs noted Abdomen: Negative for ascites and bruising, normoactive bowel sounds, soft, non- tender to palpation throughout Musculoskeletal: Patient is tender to palpation over the lower lumbar spine and right lumbar paravertebral muscles, decreased strength with right hip flexion due to pain, otherwise symmetrical strength in the BL LE's Extremities: Radial, dorsalis pedis, and posterior tibial pulses are intact and symmetrical, no edema noted in the BL LE's Skin: Warm, dry, no rashes , lesions, or scars noted Neuro: Alert and oriented to person, place, month, year, and president, no focal defects, decreased sensation in the RLE in the L4/L5 dermatome, 2+ patellar and Achilles reflex BL Psych: mild distress due to pain, but polite and cooperative during the exam Results & Data Results & Data Vital Signs (Past 12 Hours) Vital Signs Temp Pulse Resp BP Pulse Ox Pulse Ox O2 Del Method 03/08/23 23:33 93 03/08/23 20:00 96 03/08/23 19:44 Room Air 03/08/23 19:20 36.8 C 103 H 18 157/89 H 96 Room Air O2 Del Method 03/08/23 23:33 CPAP 03/08/23 20:00 03/08/23 19:44 03/08/23 19:20 Resident Activity Tracking Resident Involvement: Resident Care Provided Care Provided: Adult Hospital Medicine
[2023-03-09 07:38] LABS: Basophils # (auto) 0.06 K/uL (0.00-0.20); Basophils % (auto) 0.6 %; Eosinophils # (auto) 0.12 K/uL (0.00-0.50); Eosinophils % (auto) 1.2 %; Hematocrit (blood only) 45.2 % (42.0-52.0); Hemoglobin 15.5 g/dl (14.0-18.0); Immature Granulocytes # (auto) 0.06 K/uL (0.01-0.20); Immature Granulocytes % (auto) 0.6 %; Lymphocytes # (auto) 3.43 K/uL (1.20-3.40); Mean Corpuscular Hemoglobin 30.2 pg (25.0-34.0); Mean Corpuscular Hgb Conc 34.3 g/dL (32.0-36.0); Mean Corpuscular Volume 88.1 fL (80.0-100.0); Mean Platelet Volume 9.5 fL (9.4-12.4); Monocytes # (auto) 0.62 K/uL (0.11-0.59); Monocytes % (auto) 6.1 %; Neutrophils % (auto) 57.5 %; Platelet Count 360 K/uL (130-400); RDW Coefficient of Variation 13.5 % (11.5-14.5); RDW Standard Deviation 43.8 fL (36.4-46.3); Red Blood Count 5.13 M/uL (4.70-6.10); White Blood Count 10.09 K/ul (4.8-10.8)
[2023-03-09 07:46] LABS: Potassium 3.7 mmol/L (3.5-5.1)
[2023-03-09 07:52] LABS: BUN Creatinine Ratio 24.7 (10-20); Creatinine Clr Calc Pharmacy 141.7 ml/min; Est GFR (African American) 127.9 ml/min; Est GFR (Non-African American) 110.4 ml/min
[2023-03-09] MEDS ORDERED: fentaNYL citrate PF 100 MCG/2 ML VIAL ONE ×2 (12:29→13:45)
[2023-03-09] MEDS ORDERED: MIDAZOLAM HCL 1 MG/ML 2ML VIAL ONE (12:30)
--- NOTE | 2023-03-09 12:52 | History & Physical Bridge Note ---
Date of Service March 09, 2023 History & Physical Bridge Note I have examined the patient, reviewed the History & Physical and in the interval since the performance of the History & Physical I have noted the following changes of clinical significance: no changes noted L3-L4 laminectomy on the right
[2023-03-09] MEDS ORDERED: ePHEDrine sulfate 50 MG/ML AMP IV PRN (13:08)
[2023-03-09] MEDS ORDERED: HYDROmorphone INJ 2 MG/ML SYR/VIAL IV PRN (13:08)
[2023-03-09] MEDS ORDERED: fentaNYL citrate PF 100 MCG/2 ML VIAL IV PRN (13:08)
[2023-03-09] MEDS ORDERED: PROMETHAZINE HCL 6.25 MG in SODIUM CHLORIDE 0.9% 50 ML IV PRN (13:08)
[2023-03-09] MEDS ORDERED: ATROPINE SULFATE 0.1 MG/ML 10ML SYR IV PRN (13:08)
[2023-03-09] MEDS ORDERED: ONDANSETRON INJ 2 MG/ML 2 ML VIAL IV PRN ×2 (13:08→15:19)
--- NOTE | 2023-03-09 13:08 | Anesthesiology Consultation ---
Date of Service March 09, 2023 Assessment & Plan Chart Review Chart Review: Acceptable Risk for Surgery and Patient NOT seen in Pre Admission Testing Consults Requested none ASA ASA2 Proposed Anesthesia Anesthesia Type: General Risk / Benefits Reviewed With: PT / POA / Parent / Guardian, Accepts Plan and Informed Consent Obtained History Surgery Operation Date: 03/09/23 14:25 Proposed Procedures p Right L3-L4 Laminectomy - Fab Pulido, Height/Weight Height: 5 ft 8 in Weight: 102 kg Allergies Allergy/AdvReac Type Severity Reaction Status Date / Time No Known Allergies Allergy Unknown Verified 10/27/16 16:48 Medications Home Medications Medication Instructions Recorded Confirmed Last Taken Probiotic 1 gummy PO DAILY 03/07/23 03/07/23 Unknown albuterol sulfate 90 mcg/actuation 2 puff inhalation UD PRN Other 03/07/23 03/07/23 Unknown aerosol inhaler amlodipine 10 mg tablet 10 mg PO QAM 03/07/23 03/07/23 03/07/23 bupropion HCl 150 mg 24 hr tablet, 150 mg PO QAM 03/07/23 03/07/23 03/07/23 extended release Active Medications Generic Name Dose Route Start Last Admin Trade Name Freq PRN Reason Stop Dose Admin Acetaminophen 650 mg 03/08/23 00:00 03/09/23 05:34 Acetaminophen 325 Mg Tab PO 04/07/23 00:00 650 mg Q6H JIMMY Administration Amlodipine Besylate 10 mg 03/08/23 09:00 03/09/23 09:17 Amlodipine Besylate 5 Mg Tab PO 04/07/23 08:59 10 mg QAM JIMMY Administration Bupropion HCl 150 mg 03/08/23 09:00 03/09/23 10:28 Bupropion Xl 150 Mg Tabcr PO 04/07/23 08:59 Not Given QAM JIMMY Enoxaparin Sodium 40 mg 03/07/23 21:00 03/08/23 20:31 Enoxaparin Inj 40 Mg/0.4 Ml Syr SQ 04/06/23 20:59 40 mg Q24H JIMMY Administration Hydromorphone HCl 0.5 mg 03/07/23 18:16 03/09/23 09:21 Hydromorphone Inj 0.5 Mg/0.5 Ml Syr IV 03/21/23 18:15 0.5 mg Q4H PRN Administration Pain(5+) NPO Date Last Intake of Fluids: 03/08/23 Time Last Intake of Fluids: 17:00 Date Last Intake of Solids: 03/08/23 Time Last Intake of Solids: 17:00 Past Medical History Medical History Asthma Exercise / Class Metabolic Activity II 4-5 Yardwork/Stairs/Walk up hill Past Surgical History Surgical History No significant past surgical history Past Anesthesia History No Hx of Anesthesia Complications and No Family Hx of Anesthesia Complications History of PONV No Hx of PONV and No Hx of Motion Sickness Social History Smoking Status: Never smoker Hx Alcohol Use: Yes Alcohol type: beer alcohol intake frequency: a few times a month Hx Substance Use: No substance use type: does not use Physical Exam Vital Signs Last Vital Signs Temp 36.6 C 03/09/23 11:55 Pulse 98 H 03/09/23 11:55 Resp 18 03/09/23 11:55 BP 144/92 H 03/09/23 11:55 Pulse Ox 95 03/09/23 11:55 O2 Del Method Room Air 03/09/23 11:55 ENMT Mouth: no dentition abnormality Thyromental Distance: > or= 3.5 Finger Breadths Mallampati Class: II Neck normal visual inspection Respiratory normal respiratory effort Auscultation: lungs clear to auscultation bilaterally Cardiovascular Rate/Rhythm: regular rate and regular rhythm Psychiatric Orientation: alert Testing Laboratory Results 03/09/23 06:47 03/09/23 06:47
[2023-03-09] MEDS ORDERED: LIDOCAINE 2% 2 ML VIAL/AMP(20MG/ML) INFIL ONE (13:12)
[2023-03-09] MEDS ORDERED: ROCURONIUM BROMIDE 10 MG/ML 5 ML VIAL IV ONE ×2 (13:12→13:58)
[2023-03-09] MEDS ORDERED: PROPOFOL IV EMULSION 10 MG/ML 20 ML VIAL IV ONE (13:12)
[2023-03-09] MEDS ORDERED: DEXAMETHASONE SOD INJ 4 MG/ML VIAL ONE (13:12)
[2023-03-09] MEDS ORDERED: ONDANSETRON INJ 2 MG/ML 2 ML VIAL ONE (13:12)
[2023-03-09] MEDS: ceFAZolin 2000MG 2,000 MG/15 ML SYR IV ONE (13:17)
[2023-03-09] MEDS ORDERED: diphenhydrAMINE 50 MG/ML VIAL ONE (13:52)
[2023-03-09] MEDS: BUPIVACAINE/EPINEPHRINE 0.5% MPF 1:200,000 30 ML VIAL ONE (13:59)
[2023-03-09] MEDS: ceFAZolin 330 MG/ML 1 GM VIAL ONE (13:59)
[2023-03-09] MEDS ORDERED: SUCCINYLCHOLINE CHLORIDE 20 MG/ML 10 ML VIAL IV ONE (14:04)
[2023-03-09] MEDS ORDERED: ALBUTEROL HFA 8 GM INHALER INH ONE (14:06)
[2023-03-09] MEDS ORDERED: SUGAMMADEX SODIUM 200 MG/2 ML VIAL IV ONE (14:10)
[2023-03-09] MEDS: FLOSEAL HEMOSTATIC MATRIX 10ML TOP ONE (14:14)
--- NOTE | 2023-03-09 14:16 | Operative Report ---
Post Operative Report Pre & Post Diagnosis Operation Date: 03/09/23 14:25 Pre-Op Diagnosis: Lumbar Disc Herniation with Radiculopathy Post-Op Diagnosis: Lumbar Disc Herniation with Radiculopathy I identified the patient and participated in the time-out.: Yes Procedure Operation Date: 03/09/23 14:25 Actual Procedures Lumbar laminotomy L3-L4 on the right with excision of herniated free fragment Surgeon Fab Pulido DO Gas Burner Operator Kerry Matthews Estimated Blood Loss 10 Findings Consistent with Post-Op Diagnosis Specimens None Indications This is a 43-year-old male who presents to the hospital with severe radiculopathy inability ambulate. He was diagnosed with a discrimination L3-L4 and is here for surgical intervention. Description of Procedure Patient was met with identified informed consent obtained. Patient was then taken to the operative suite underwent a patient placed in a prone position on the Valdemar table top of the Ethan frame. All bony prominences well-padded eyes inspected to ensure no external pressure placed upon the. This point the lumbar spine was prepped and draped in a sterile fashion. The assistance of fluoroscopy identify the L3-L4 disc space sharp dissection with assistance of Bovie cautery from down to and exposing the interlaminar region at L3-L4 on the right. Self-retaining retractors placed. Then performed a small laminotomy on the right with excision of the medial facet to expose markedly compressed traversing L4 nerve root. Is mobilized medially and the large fragments of free disc material identified and removed. The area was explored several times to ensure all fragments addressed then copiously irrigated and closed subcutaneous Vicryl and 4 Monocryl for final closure. Steri-Strips sterile dressing placed. Patient waken taken to PACU in stable condition. Please note Kerry Matthews was present at the entire procedure while the patient positioning complex portion of the surgery and final skin closure. I attest to the content of the Intraoperative Record and any orders documented therein. Any exceptions are noted below.
--- NOTE | 2023-03-09 14:44 | Fluoroscopy Report ---
FL spine 1V any level CLINICAL HISTORY: RIGHT L3-L4 LAMIchronic low back pain COMPARISON STUDY: MRI lumbar spine 03/07/2023 FLUOROSCOPY TIME: 5.2 seconds FLUOROSCOPY IMAGES: 1 EXPOSURE DOSE: 4.17 mGy FINDINGS: Retractors with orthopedic surgical device noted posterior to the L3-L4 disc space. Multile stacy intervertebral disc space narrowing and spondylitic spurring redemonstrated. Anterolisthesis L5 o n S1 is again seen. IMPRESSION: Fluoroscopic assistance as above. ACT 112: Negative or not required by law. Electronically signed by: Manav Barnett M.D. 03/09/2023 2:42 PM
--- NOTE | 2023-03-09 15:02 | Anesthesiology Progress Note ---
Date of Service March 09, 2023 Anesthesia Post Procedure Vital Signs Vital Signs: Temp Pulse Pulse Resp BP Pulse Ox Pulse Ox 03/09/23 14:55 101 H 14 149/96 H 95 03/09/23 14:45 101 H 15 149/96 H 96 03/09/23 14:35 103 H 15 142/97 H 92 03/09/23 14:29 36.8 C 114 H 17 158/97 H 96 03/09/23 11:55 36.6 C 98 H 18 144/92 H 95 03/09/23 07:42 36.3 C L 79 18 122/71 93 03/08/23 23:33 93 03/08/23 20:00 96 03/08/23 19:44 03/08/23 19:20 36.8 C 103 H 18 157/89 H 96 O2 Del Method O2 Del Method O2 Flow Rate 03/09/23 14:55 Nasal Cannula 3 03/09/23 14:45 Nasal Cannula 3 03/09/23 14:35 Nasal Cannula 3 03/09/23 14:29 Nasal Cannula 3 03/09/23 11:55 Room Air 03/09/23 07:42 Room Air 03/08/23 23:33 CPAP 03/08/23 20:00 03/08/23 19:44 Room Air 03/08/23 19:20 Room Air Pain Intensity Lower Back: Pain Intensity: 5 Right Leg: Pain Intensity: 8 Right Hip: Pain Intensity: 2 Transfer of Care Handoff Completed per policy Notes Mental Status: alert / awake / arousable Patient Amnestic to Procedure: Yes Nausea / Vomiting: adequately controlled Pain: adequately controlled Airway Patency, RR, SpO2: stable & adequate BP & HR: stable & adequate Hydration State: stable & adequate Anesthetic Complications: no major complications apparent
[2023-03-09] MEDS ORDERED: hydrOXYzine HCl 25 MG TAB PO PRN (15:19)
[2023-03-09] MEDS ORDERED: LORazepam 0.5 MG in SYRINGE 0.25 ML IV PRN (15:19)
[2023-03-09] MEDS ORDERED: HYDROmorphone INJ 0.5 MG/0.5 ML SYR IV PRN (15:19)
[2023-03-09] MEDS ORDERED: DO NOT ADMINISTER FLU VACCINE PRN (15:19)
[2023-03-09] MEDS ORDERED: METOCLOPRAMIDE HCL INJ 5 MG/ML 2 ML VIAL IV PRN (15:19)
[2023-03-09] MEDS ORDERED: FAMOTIDINE 20 MG TAB PO PRN (15:19)
[2023-03-09] MEDS ORDERED: PROMETHAZINE HCL 12.5 MG in SODIUM CHLORIDE 0.9% 50 ML IV PRN (15:19)
[2023-03-09] MEDS ORDERED: HYDROmorphone INJ 1 MG/ML SYRINGE IV PRN (15:19)
[2023-03-09] MEDS ORDERED: SOD PHOSPHATE/SOD BIPHOSPHATE ENEMA 132 ML BTL PR PRN (15:19)
[2023-03-09] MEDS ORDERED: traMADol HCL 50 MG TABLET PO PRN (15:19)
[2023-03-09] MEDS ORDERED: ALUMINUM/MAGNESIUM SUSP 30 ML UDC PO PRN (15:19)
[2023-03-09] MEDS ORDERED: ACETAMINOPHEN 1,000 MG/100 ML VIAL IV PRN (15:19)
[2023-03-09] MEDS ORDERED: DO NOT ADMINISTER PNEUMOCOCCAL VACCINE PRN (15:19)
[2023-03-09] MEDS ORDERED: LORazepam 0.5 MG TAB PO PRN (15:19)
[2023-03-09] MEDS ORDERED: ACETAMINOPHEN 500 MG TAB PO PRN (15:19)
[2023-03-09] MEDS ORDERED: bisacodyL 10 MG SUPP PR PRN (15:19)
[2023-03-09] MEDS ORDERED: NALOXONE HCL 0.4 MG/1 ML VIAL/CARP IV PRN (15:19)
[2023-03-09] MEDS ORDERED: MAGNESIUM HYDROXIDE SUSP 30 ML UDC PO PRN (15:19)
[2023-03-09] MEDS ORDERED: ONDANSETRON 4 MG OD TAB PO PRN (15:19)
[2023-03-09] MEDS ORDERED: diphenhydrAMINE Capsule 25 MG CAP PO PRN (15:19)
[2023-03-09] MEDS: ceFAZolin 2,000 MG/15 ML IV PUSH IV ONE (15:35)
[2023-03-09] MEDS: LACTATED RINGER'S 1,000 ML IV SCH (15:41)
[2023-03-09] MEDS: oxyCODONE HCL IR 5 MG TAB (IMMEDIATE RELEASE) PO PRN (16:51)
[2023-03-09] MEDS: DOCUSATE SODIUM/SENNA 50/8.6MG TAB PO SCH (20:26)
[2023-03-09] MEDS: ceFAZolin 2000MG 2,000 MG/15 ML SYR IV SCH (20:26)
[2023-03-10] MEDS: POLYETHYLENE (MIRALAX) 17 GM PACK PO SCH (05:02)
--- NOTE | 2023-03-10 07:27 | Hospitalist Progress Note ---
Date of Service March 10, 2023 Assessment & Plan (1) Right lumbar radiculitis: (2) Elevated ALT measurement: (3) Intractable low back pain: (4) Asthma: (5) HTN (hypertension): Plan Right lumbar radiculitis: -Currently hemodynamically stable and stable on RA -Presented to the ED with acute onset of lumbar back pain with radiation down the RLE -Associated with RLE paresthesias -No red flag symptoms or recent falls -Xray of the lumbar spine shows "Chronic L5 pars defects with grade 1 spondylolisthesis" -Pain was uncontrolled despite multiple doses of morphine, toradol and a dose of dilaudid in the ED -Will continue pain control with scheduled Tylenol, heat, lidocaine patch and prn dilaudid for severe pain -Lumbar MRI showed chronic bilateral pars defects of L5 with grade 1 spondylolisthesis of L5 on S1, right subarticular disc protrusion at L3-L4 with mass effect on descending right L4 nerve roots, and degenerative changes at L4- L5 resulting in right and left foraminal narrowing -Ortho spine consulted. -Fall precautions, PT/OT consults placed -SQ lovenox for DVT PPX, held prior to surgery. -Will go to the OR on 03/09 for right L3-L4 laminectomy surgery with Dr. Pulido. Elevated ALT measurement: -ALT mildly elevated at 55 -Patient does not report significant alcohol intake -Denies recent Tylenol use -resolved on 03/08. Intractable low back pain -See right lumbar radiculitis Asthma -Stable on RA -Lungs are clear -Incentive spirometry -PRN albuterol HTN (hypertension) -Stable -Continue amlodipine Admission and Anticipated Discharge Date Admission Date: March 07, 2023 Results & Data Results & Data Vital Signs (Past 12 Hours) Vital Signs Temp Pulse Resp BP Pulse Ox O2 Del Method 03/10/23 03:10 36.6 C 79 17 129/75 94 Room Air 03/09/23 23:12 36.9 C 101 H 16 142/87 H 95 Room Air 03/09/23 22:27 Room Air
[2023-03-10 08:21] LABS: Basophils # (auto) 0.04 K/uL (0.00-0.20); Basophils % (auto) 0.3 %; Eosinophils # (auto) 0.02 K/uL (0.00-0.50); Eosinophils % (auto) 0.1 %; Hematocrit (blood only) 48.3 % (42.0-52.0); Hemoglobin 16.5 g/dl (14.0-18.0); Immature Granulocytes # (auto) 0.08 K/uL (0.01-0.20); Immature Granulocytes % (auto) 0.5 %; Lymphocytes # (auto) 3.21 K/uL (1.20-3.40); Lymphocytes % (auto) 20.6 %; Mean Corpuscular Hemoglobin 29.8 pg (25.0-34.0); Mean Corpuscular Hgb Conc 34.2 g/dL (32.0-36.0); Mean Corpuscular Volume 87.3 fL (80.0-100.0); Mean Platelet Volume 9.4 fL (9.4-12.4); Monocytes % (auto) 6.4 %; Neutrophils # (auto) 11.21 K/uL (1.40-6.50); Neutrophils % (auto) 72.1 %; Platelet Count 410 K/uL (130-400); RDW Coefficient of Variation 13.2 % (11.5-14.5); RDW Standard Deviation 42.4 fL (36.4-46.3); Red Blood Count 5.53 M/uL (4.70-6.10); White Blood Count 15.56 K/ul (4.8-10.8)
--- NOTE | 2023-03-10 08:29 | Orthopedic Progress Note ---
Date of Service March 10, 2023 Assessment & Plan (1) Lumbar disc herniation with radiculopathy: Plan: Patient's radiculopathy is improved. He is been up and ambulating. He is okay for discharge today. Admission and Anticipated Discharge Date Admission Date: March 07, 2023 Subjective Back pain controlled leg pain markedly improved Physical Exam Physical Exam: Patient is comfortable. Is good strength testing. Results & Data Vital Signs (Past 12 Hours) Vital Signs Temp Pulse Resp BP Pulse Ox O2 Del Method 03/10/23 07:39 36.9 C 82 18 135/84 94 Room Air 03/10/23 03:10 36.6 C 79 17 129/75 94 Room Air 03/09/23 23:12 36.9 C 101 H 16 142/87 H 95 Room Air 03/09/23 22:27 Room Air Queries Orthopedic Spine Obesity: Yes
[2023-03-10 08:49] LABS: Calcium 9.5 mg/dl (8.6-10.3); Est GFR (African American) 125.9 ml/min; Est GFR (Non-African American) 108.6 ml/min; Potassium 3.7 mmol/L (3.5-5.1)
[2023-03-10] MEDS: dexAMETHasone 6 MG in SYRINGE 0 ML IV SCH (09:11)
--- NOTE | 2023-03-10 09:51 | Discharge Summary ---
Date of Service March 10, 2023 Admission HPI Per Admitting Provider Arsh is a 43 year old male with a PMH significant for HTN, obesity, asthma, and anxiety who presented to the [facility] ED on 03/07/23 for uncontrolled low back pain with radiation down the right leg. He was noted to be tachycardic with HR in the low 100's but otherwise stable. Labs were significant for a ALT of 55 but otherwise unremarkable. Xray of the lumbar spine was read as "1. No acute fracture or subluxation. 2. Moderate degenerative changes of the lower lumbar spine. 3. Chronic L5 pars defects with grade 1 spondylolisthesis. ". The patient was given 2 doses of 6 mg IV morphine, one dose of 0.5 mg IV Dilaudid, 125 mg, 15 mg IV toradol without improvement in his symptoms. We were asked to admit for pain control, MRI of the lumbar spine, and Ortho Spine consult/evaluation. At the time of the exam the patient was lying in bed and appears uncomfortable but in no acute distress. 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 Over the past 2 months he has been chopping lots of wood for the winter which somewhat exacerbated his pain last month, but this had improved. 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 He states that since the weekend he has had significantly increased low back pain with radiation down the right lateral leg, over the anterior bejarano, and on the dorsal aspect of the right foot. He has been experiencing paresthesias over the same distribution of his pain but denies loss of bowel/bladder function, saddle anesthesia, and recent falls. He does state that he has felt less stable on his feet over the past 48 hours. He was using ibuprofen for his pain over the past hours taking 800 mg BID without relief. He denies current tobacco use and drinks beer socially. He is a full code and would want his fiance (Faye Pulliam [phone]) to make medical decisions for him if he cannot make them himself. Admission Exam Per Admitting Provider General: In mild distress due to pain, stated age, well-nourished, good hygiene HEENT: Normocephalic, atraumatic, no scleral icterus, pupils around round, symmetrical, and reactive to light, moist mucus membranes, trachea midline, no thyromegaly Chest/Pulm: No respiratory distress, symmetrical chest expansion, clear breath sounds throughout Cardiac: RRR, no murmurs noted Abdomen: Negative for ascites and bruising, normoactive bowel sounds, soft, non- tender to palpation throughout Musculoskeletal: Patient is tender to palpation over the lower lumbar spine and right lumbar paravertebral muscles without step off or crepitus, decreased strength with right hip flexion due to pain, otherwise symmetrical strength in the BL LE's Extremities: Radial, dorsalis pedis, and posterior tibial pulses are intact and symmetrical, no edema noted in the BL LE's Skin: Warm, dry, no rashes , lesions, or scars noted Neuro: Alert and oriented to person, place, month, year, and president, no focal defects, decreased sensation in the RLE compared to left with light touch, 2+ patellar and Achilles reflex BL Psych: mild distress due to pain, but polite and cooperative during the exam Principal Diagnosis Lumbar disc herniation with radiculopathy Discharge Exam Constitutional: well-appearing, no acute distress HEENT: NCAT, no conjunctival injection CV: regular rhythm, no murmur appreciated, extremities well-perfused, no LE edema Resp: CTABL, no wheezes/rales/rhonchi appreciated, no increased work of breathing GI: soft, nondistended, nontender, BS normoactive MSK: no gross deformities appreciated, improved low back tenderness Skin: warm, dry, no rash appreciated Neuro: alert, oriented, no focal neurologic deficit appreciated Discharge Data Allergies Allergy/AdvReac Type Severity Reaction Status Date / Time No Known Allergies Allergy Unknown Verified 10/27/16 16:48 Consultations 03/07/23 18:53 Consult Orthopedic Spine Surgery Routine 03/07/23 20:27 ED Decision to Admit Stat Procedures Performed Operation Date: 03/09/23 14:25 Actual Procedures p Right L3-L4 Laminectomy(Right) - Fab Pulido DO Ordered Studies 03/07/23 16:50 MRI Lumbar Spine [MR lumbar spine wo con] Stat 03/09/23 FL spine 1V any level Routine Lumbar Spine X-Ray 03/07/23 13:59 XR lumbar spine min 4V routine HISTORY: 43 years-old Male R lumbar radiculitis x 2-3 mos subacute low back pain without reported trauma COMPARISON: None TECHNIQUE: 5 views of the lumbar spine FINDINGS: Chronic L5 pars defects with 7 mm anterolisthesis. Moderate intervertebral disc space narrowing and spondylitic spurring at L3-L4, L4-L5 and L5-S1. Additionally, there is moderate facet arthrosis at these levels. No acute fracture identified. No endplate erosions. Unremarkable soft tissues. IMPRESSION: 1. No acute fracture or subluxation. 2. Moderate degenerative changes of the lower lumbar spine. 3. Chronic L5 pars defects with grade 1 spondylolisthesis. ACT 112: Negative or not required by law. The above report was generated using voice recognition software. It may contain grammatical, syntax or spelling errors. Electronically signed by: Manav Barnett M.D. 03/07/2023 3:23 PM Lumbar Spine MRI 03/07/23 16:50 Exam(s): MRI L SPINE Without Contrast EXAM: MR Lumbar Spine Without Intravenous Contrast CLINICAL HISTORY: Reason for exam: Intractable LBP w/ R lumbar radic. TECHNIQUE: Magnetic resonance images of the lumbar spine without intravenous contrast in multiple planes. COMPARISON: Lumbar spine radiographs 03/07/2023 FINDINGS: Vertebrae: Chronic bilateral pars defects of L5 with grade 1 spondylolisthesis of L5 on S1. Minimal grade 1 retrolisthesis of L3 on L4 and L4 on L5. Modic degenerative endplate changes are seen in the lumbar spine. 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 Spinal cord: Unremarkable. Normal signal. Soft tissues: Unremarkable. DISCS/SPINAL CANAL/NEURAL FORAMINA: L1-L2: Mild disc bulge with small endplate osteophytes and facet arthrosis. No significant spinal canal stenosis or foraminal narrowing. L2-L3: Mild disc bulge and facet arthrosis. No significant spinal canal stenosis. Mild bilateral foraminal narrowing. L3-L4: Disc bulge with annular fissure and superimposed right subarticular disc protrusion. Bilateral facet arthrosis. Right subarticular recess stenosis with displacement of the descending right L4 nerve roots. Moderate bilateral foraminal narrowing. L4-L5: Disc bulge with annular fissure, endplate osteophytes, and bilateral facet arthrosis. No significant spinal canal stenosis. Severe right and moderate to severe left foraminal narrowing. L5-S1: Spondylolisthesis of L5 on S1 with uncovering of disc material, annular fissure, endplate osteophytes, and bilateral facet arthrosis. No significant spinal canal stenosis. Severe bilateral foraminal narrowing. IMPRESSION: 1. Chronic bilateral pars defects of L5 with grade 1 spondylolisthesis of L5 on S1 and associated severe degenerative change resulting in severe bilateral foraminal narrowing. Recommend correlation for symptoms. 2. Right subarticular disc protrusion at L3-L4 resulting in right subarticular recess stenosis with mass effect on the descending right L4 nerve roots. Recommend correlation for symptoms. 3. Degenerative change at L4-L5 resulting in severe right and moderate to severe left foraminal narrowing. Electronically signed by: Mohinder Bravo MD 03/07/23 20:09 PM Orbit X-Ray 03/07/23 16:50 XR orbits for MRI CLINICAL HISTORY: Screening for foreign body for MRI TECHNIQUE: AP and lateral views of the orbits were submitted for interpretation. Comparison: None available at the time of this dictation. FINDINGS/IMPRESSION: There are no radiopaque metallic foreign bodies. The osseous structures are unremarkable. Patient is cleared for MRI. ACT 112: Negative or not required by law. Electronically signed by: Chris Foster M.D. 03/07/2023 5:56 PM Chest X-Ray 03/07/23 18:47 XR chest 1V portable CLINICAL HISTORY: pre-operative clearance TECHNIQUE: Single frontal radiograph of the chest was obtained. Comparison: None available at the time of this dictation. FINDINGS: No lines and tubes are seen. The cardiomediastinal silhouette is normal. The lungs are clear. No evidence of pleural effusion or pneumothorax. IMPRESSION: No acute chest disease. ACT 112: Negative or not required by law. Electronically signed by: Chris Foster M.D. 03/08/2023 11:27 AM Spine X-Ray 03/09/23 00:00 FL spine 1V any level CLINICAL HISTORY: RIGHT L3-L4 LAMIchronic low back pain COMPARISON STUDY: MRI lumbar spine 03/07/2023 FLUOROSCOPY TIME: 5.2 seconds FLUOROSCOPY IMAGES: 1 EXPOSURE DOSE: 4.17 mGy FINDINGS: Retractors with orthopedic surgical device noted posterior to the L3- L4 disc space. Multilevel intervertebral disc space narrowing and spondylitic spurring redemonstrated. Anterolisthesis L5 on S1 is again seen. IMPRESSION: Fluoroscopic assistance as above. ACT 112: Negative or not required by law. Electronically signed by: Manav Barnett M.D. 03/09/2023 2:42 PM Hospital Course (1) Right lumbar radiculitis: (2) Elevated ALT measurement: (3) Intractable low back pain: (4) Asthma: (5) HTN (hypertension): Plan Right lumbar radiculitis: -Presented to the ED with acute onset of lumbar back pain with radiation down th e RLE -Associated with RLE paresthesias -No red flag symptoms or recent falls -Xray of the lumbar spine shows "Chronic L5 pars defects with grade 1 spondylolisthesis" -Pain was uncontrolled despite multiple doses of morphine, toradol and a dose of dilaudid in the ED -Lumbar MRI showed chronic bilateral pars defects of L5 with grade 1 spondylolisthesis of L5 on S1, right subarticular disc protrusion at L3-L4 with mass effect on descending right L4 nerve roots, and degenerative changes at L4- L5 resulting in right and left foraminal narrowing -Ortho spine consulted. -Lumbar laminotomy L3-L4 on the right with excision of herniated free fragment done on 03/[address] Pulido. -Patient was up walking and cleared by PT and OT after surgery. Numbness improving in the legs. -Follow-up with PCP in 1 to 2 weeks, will follow-up with Dr. Pulido as an outpatient. -Oxycodone and tramadol sent in for patient for pain as needed after surgery. Elevated ALT measurement: -ALT mildly elevated at 55 -Patient does not report significant alcohol intake -Denies recent Tylenol use -resolved on 03/08. Intractable low back pain -See right lumbar radiculitis Asthma -Stable on RA -Lungs are clear -Incentive spirometry HTN (hypertension) -Stable -Continue amlodipine Total Time Total Time Spent Total Time Spent (In Minutes): Please refer to attendings attestation Discharge Plan Discharge Items Patient Disposition: Home - Self-Care Reason For Visit: ACUTE RADICULAR BACK PAIN Discharge Diagnosis: Lumbar disc herniation with radiculopathy Activity: As commented below Non-emergency contact: Primary Care Provider Call non-emergency contact if: you have any medication questions Follow-up/Referrals: Amy Carey MD [Outside Practitioners] - Diet: Regular Addtl Attending Provider Instructions: ACTIVITY RECOMMENDATIONS: SELF CARE INSTRUCTIONS AFTER A LAMINECTOMY 1. No prolonged sitting (less than 30 minutes for the first 3 weeks after surgery). 2. No bending, lifting more than 5 pounds, or twisting (roll like a log when turning in bed). 3. You may shower 3 days after surgery if no drainage from wound. Thoroughly dry wound. Do not soak in the tub. 4. Please walk as much as you can for exercise. Gradually increase the distance that you walk as your endurance increases. 5. You may drive in 7-10 days if you are comfortable and no longer requiring pain medications. SPECIAL CARE INSTRUCTIONS: VERY IMPORTANT TO READ AND REVIEW A. Your surgical incision has been closed with a cosmetic suture under the skin that will dissolve in about 6 weeks. In 14 days, you can use a pair of clean scissors and cut the suture that is left outside of the skin at the ends of your incision. B. Complications are uncommon, but please contact us if you have any signs or symptoms of: 1. wound infection (fever higher than 102.5 degrees F, redness, separation of wound, drainage, or increasing pain from the incision) 2. blood clots in legs (pain, swelling, redness and warmth in legs) 3. urinary tract infection (fever higher than 102.5 degrees, burning upon urination or increased frequency of urination) 4. nerve problems (inability to walk on your toes or heels, numbness, loss of bowel or bladder control) 5. any other symptoms that concern you. C. Please call the office at if you have any concerns or questions about your operation or recovery. MANAGING PAIN AFTER SPINAL SURGERY 1. Narcotic medication is intended for short-term use and will be provided for surgical pain. Surgical pain usually lasts for a period of 4-6 weeks. Narcotic medication includes Percocet, Vicodin, Darvocet, Tylenol #3 or Lortab. 2. Longer-term pain is more appropriately treated with non-narcotic medication such as Tylenol ES. 3. Muscle spasm is not appropriately treated with narcotics. Muscle relaxers such as Soma, Flexeril or Skelaxin can be used along with Tylenol ES. 4. Remember that we all live with some "aches and pains". This is not unusual or uncommon after an injury or as we get older. 5. We will provide appropriate medication within the normal guidelines of their prescribed use. We will also be very cautious and aware of potential abuse and extended duration of patients' medication needs. 6. Please allow 2-3 days to process refills. Prescriptions will not be mailed but must be picked up at the office. FOLLOW UP VISIT: Keep your scheduled follow-up appointment. Any questions, please call the office at . Pending Studies at Discharge: No Stand-Alone Forms: My [facility], Smoking Cessation Medications and DC Order Prescriptions: New tramadol 50 mg tablet 50 mg PO Q6H PRN (Reason: pain, moderate) Qty: 30 0RF oxycodone 5 mg tablet 5 mg PO Q6H PRN (Reason: pain) Qty: 20 0RF Continued amlodipine 10 mg tablet 10 mg PO QAM albuterol sulfate 90 mcg/actuation Hfa Aerosol Inhaler 2 puff INHALATION UD PRN (Reason: Other) bupropion HCl 150 mg tablet extended release 24 hr 150 mg PO QAM Probiotic 1 gummy PO DAILY Discharge Orders: Discharge Order (Routine); Ordered 03/10/23 Ordered By: Fab Bowie/Other Patient Handouts: Laminectomy Dc Admission Data Admit Date/Time: 03/07/23 18:13 Attending Provider: Moise Alejandra Admit Provider: Adonis Saenz Primary Care Provider: PCP,NO Other Providers: Fab Pulido; Adonis Saenz Other Interventions: Discharge Summary Assessment (RN) Last Done: 03/10/23 11:31 Supervising Physician Co-Signing Physician Notes Attending attestation Pt seen and examined in concert with Dr. Davis. In agreement with the documented findings as noted in the resident documentation with any exceptions or additions as noted here. Pain well controlled postoperatively with current medication regimen, improving paresthesias of the RLE. Ambulating well. On examination, S1/S2 nl RRR no MCG. CTAB. Abd NT/ND BS+ve. Decreased sensation on the lateral surface of the RLE past the knee overall improved with good mvt bilateral foot LBP with right lumbar radiculitis - ortho spine consult -pain well controlled, counseling provided re: cautions for ambulation and activity tolerance HTN - continue home regimen on discharge Elevated ALT - initially, resolved on repeat testing Else see resident documentation as noted. Total attending physician time spent with this patient's care on the day of discharge: 32 minutes Resident Activity Tracking Resident Involvement: Resident Care Provided Care Provided: Adult Hospital Medicine
== END 2023-03-10 13:51 | disposition home or self-care (01) | DRG 517 ==
LOC: ED 13:27 → 3N 18:13 → SUATTDRO 18:13 → 3N 20:10